=== PATIENT | male | born 1975 | race Caucasian/White ===

== ENCOUNTER 2016-10-01 11:16 | Emergency (ER) | payer BC, OTHER ==
[~2016-10-01 11:16] MED LIST: ALLO300T PO; ATEN100T PO; CHLO25CA9 PO; GLEEVEC400 MG PO; HYDR-2766 PO; HYDR25TA9 PO; POTA20TA4 PO
[2016-10-01 11:32] VITALS: BP 131/91
[2016-10-01 12:14] LABS: BASO % 0 % (0-3); EOS % 7 % (0-3); HEMATOCRIT 46.9 % (39.0-53.0); HEMOGLOBIN 16.2 g/dL (13.0-17.5); LYMPH # 0.6 x10^3/uL (1.0-4.8); LYMPH % 14 % (24-48); MEAN CORPUSCULAR HEMOGLOBIN 34 pg (25-35); MEAN CORPUSCULAR HGB CONC 35 g/dL (31-37); MEAN CORPUSCULAR VOLUME 99 fL (79-100); MONO % 14 % (0-9); NEUT % 64 % (31-73); PLATELET COUNT 197 x10^3/uL (140-400); RED BLOOD COUNT 4.75 x10^6/uL (4.30-5.70); RED CELL DISTRIBUTION WIDTH 13.9 % (11.5-14.5); WHITE BLOOD COUNT 4.2 x10^3/uL (4.0-11.0)
[2016-10-01 12:23] LABS: CALCIUM 9.5 mg/dL (8.5-10.1); CREATININE 0.8 mg/dL (0.7-1.3); GFR 106.5; POTASSIUM 3.8 mmol/L (3.5-5.1)
[2016-10-01 12:29] LABS: ALBUMIN 4.5 g/dL (3.4-5.0); ALBUMIN/GLOBULIN RATIO 1.3 (1.0-1.7); TOTAL BILIRUBIN 0.6 mg/dL (0.2-1.0)
--- NOTE | 2016-10-01 12:46 | PHYS DOC ---
Past Medical History Past Medical History: Hypertension Additional Past Medical Histor: LEJAVIERKEJOHNSON Past Surgical History: Hip Replacement Alcohol Use: Occasionally Drug Use: None Adult General Chief Complaint Chief Complaint: WEAKNESS/GENERALIZED HPI HPI 40-year-old male presenting to the emergency department with generalized weakness and fatigue. He has a history of chronic myelogenous leukemia currently on Gleevec therapy orally. She reports having a tick bite approximately one and half weeks ago. He has been in discussion with his oncologist about his fatigue over the past week who recommended he come in for evaluation. He reports blood work being performed but not knowing the results. Onset 1 week. Location generalized. Duration intermittent. Worse with walking and alleviated with rest. Review of systems was negative for fevers chills. Positive with nausea with one episode of vomiting yesterday. Vomitus is nonbilious and nonbloody. He denies chest pain or shortness of breath. All other review of systems is negative unless otherwise noted in history of present illness. ED course: 40-year-old gentleman presenting with generalized fatigue and weakness. Afebrile here. Otherwise unremarkable vital signs. Physical exam shows very faint rash along the anterior abdominal wall that is macular. No evidence of a target lesion around the tick bite area. Otherwise the patient has been scratching his legs which the showed me. The remainder the exam is unremarkable. Blood work obtained. Given the patient's history of tick bite exposure and fatigue with a rash the patient was prescribed doxycycline to follow-up with his doctor in 2-3 days. The patient was then discharged home in stable condition to follow up with their primary care physician over the next 2- 3 days. They were to return if their symptoms worsened or if they were concerned for any reason. [id number] discharge instructions and return precautions were given. Patient's questions were answered to their satisfaction. Patient is comfortable plan. Review of Systems Review of Systems SEE ABOVE. Allergies Allergies Allergies Coded Allergies Type Severity Reaction Last Updated Verified celecoxib Allergy Severe 06/08/14 No Physical Exam Physical Exam Constitutional: Well developed, well nourished, no acute distress, non-toxic appearance. [] HENT: Normocephalic, atraumatic, bilateral external ears normal, oropharynx moist, no oral exudates, nose normal. [] Eyes: PERRLA, EOMI, conjunctiva normal, no discharge. [] Neck: Normal range of motion, no tenderness, supple, no stridor. [] Cardiovascular:Heart rate regular rhythm, no murmur [] Lungs & Thorax: Bilateral breath sounds clear to auscultation [] Abdomen: Bowel sounds normal, soft, no tenderness, no masses, no pulsatile masses. rash present. see above Skin: Warm, dry,. see above Back: No tenderness, no CVA tenderness. [] Extremities: No tenderness, no cyanosis, no clubbing, ROM intact, no edema. [] Neurologic: Alert and oriented X 3, normal motor function, normal sensory function, no focal deficits noted. [] Psychologic: Affect normal, judgement normal, mood normal. [] Current Patient Data Vital Signs Vital Signs Date Time Temp Pulse Resp B/P (MAP) Pulse Ox O2 Delivery O2 Flow Rate FiO2 10/01/16 11:32 98.0 94 18 131/91 (104) 97 Room Air 98.0 Lab Values Laboratory Tests Test 10/01/16 12:00 White Blood Count 4.2 x10^3/uL (4.0-11.0) Red Blood Count 4.75 x10^6/uL (4.30-5.70) Hemoglobin 16.2 g/dL (13.0-17.5) Hematocrit 46.9 % (39.0-53.0) Mean Corpuscular Volume 99 fL (79-100) Mean Corpuscular Hemoglobin 34 pg (25-35) Mean Corpuscular Hemoglobin Concent 35 g/dL (31-37) Red Cell Distribution Width 13.9 % (11.5-14.5) Platelet Count 197 x10^3/uL (140-400) Neutrophils (%) (Auto) 64 % (31-73) Lymphocytes (%) (Auto) 14 % (24-48) L Monocytes (%) (Auto) 14 % (0-9) H Eosinophils (%) (Auto) 7 % (0-3) H Basophils (%) (Auto) 0 % (0-3) Neutrophils # (Auto) 2.7 x10^3uL (1.8-7.7) Lymphocytes # (Auto) 0.6 x10^3/uL (1.0-4.8) L Monocytes # (Auto) 0.6 x10^3/uL (0.0-1.1) Eosinophils # (Auto) 0.3 x10^3/uL (0.0-0.7) Basophils # (Auto) 0.0 x10^3/uL (0.0-0.2) Sodium Level 136 mmol/L (136-145) Potassium Level 3.8 mmol/L (3.5-5.1) Chloride Level 97 mmol/L (98-107) L Carbon Dioxide Level 32 mmol/L (21-32) Anion Gap 7 (6-14) Blood Urea Nitrogen 10 mg/dL (8-26) Creatinine 0.8 mg/dL (0.7-1.3) Estimated GFR (Cockcroft-Gault) 106.5 BUN/Creatinine Ratio 13 (6-20) Glucose Level 105 mg/dL (70-99) H Calcium Level 9.5 mg/dL (8.5-10.1) Total Bilirubin 0.6 mg/dL (0.2-1.0) Aspartate Amino Transferase (AST) 98 U/L (15-37) H Alanine Aminotransferase (ALT) 135 U/L (16-63) H Alkaline Phosphatase 77 U/L (46-116) Total Protein 8.0 g/dL (6.4-8.2) Albumin 4.5 g/dL (3.4-5.0) Albumin/Globulin Ratio 1.3 (1.0-1.7) Lipase 127 U/L (73-393) Laboratory Tests 10/01/16 12:00 Laboratory Tests 10/01/16 12:00 EKG EKG [] Radiology/Procedures Radiology/Procedures [] Course & Med Decision Making Course & Med Decision Making Pertinent Labs and Imaging studies reviewed. (See chart for details) [] Dragon Disclaimer Dragon Disclaimer This electronic medical record was generated, in whole or in part, using a voice recognition dictation system. Departure Departure Impression: Primary Impression: Tick bite of abdomen Additional Impressions: Rash Fatigue Disposition: 01 HOME, SELF-CARE Condition: STABLE Referrals: JOHANNA STRICKLAND MD (PCP) Problem Qualifiers RAMY GREENBERG MD Oct 01, 2016 12:46
[2016-10-01] MEDS ORDERED: DOXY100C14 PO (13:31)
== END 2016-10-01 14:00 | disposition home or self-care (01) ==
LOC: ER 11:16
DX: S30.861A Insect bite (nonvenomous) of abdominal wall, initial encounter (principal); R21 Rash and other nonspecific skin eruption; R53.83 Other fatigue; I10 Essential (primary) hypertension; Z96.649 Presence of unspecified artificial hip joint; Z85.6 Personal history of leukemia; Z88.6 Allergy status to analgesic agent; Y93.89 Activity, other specified; Y99.8 Other external cause status; Y92.89 Other specified places as the place of occurrence of the external cause
CPT/HCPCS: 36415; 80053; 83690; 85027; 99284

== ENCOUNTER → 2016-10-24 | Outpatient (CLI) | payer BC ==
[2016-10-01 11:32] VITALS: BP 131/91
[~2016-10-24] MED LIST changes: +DOXY100C14 PO
--- NOTE | 2016-10-24 11:26 | RAD ---
Abdominal ultrasound, 10/24/2016: History: Leukemia The gallbladder is within normal limits in size. There is no sonographic evidence of cholelithiasis. The gallbladder [place] are not thickened. No bile duct dilatation is seen. The liver is enlarged measuring 19 cm in craniocaudad extent at the level of the right lobe. It demonstrates increased echogenicity compatible with fatty change. No hepatic mass is seen. The pancreas was obscured by overlying bowel. The spleen is within normal limits in size. The left kidney is unremarkable. The right kidney is congenitally absent. The visualized portions of the abdominal aorta and inferior vena cava are unremarkable. No free fluid is evident in the abdomen. IMPRESSION: 1. Hepatomegaly with hepatic steatosis. 2. Congenitally absent right kidney. 3. No acute abdominal abnormality is detected.
== END | disposition home or self-care (01) ==
LOC: US 07:50
PROVIDERS: ATTEND Internal Medicine Hematology & Oncology
DX: K76.0 Fatty (change of) liver, not elsewhere classified (principal); R16.0 Hepatomegaly, not elsewhere classified; D73.89 Other diseases of spleen
CPT/HCPCS: 76700

== ENCOUNTER → 2020-09-19 | Outpatient (CLI) | payer BC ==
[2020-08-20 15:00] VITALS: BP 136/71
[~2020-09-19] MED LIST changes: +ASPI-886 PO; +ATEN50TA PO; +DOXY-181 PO; -DOXY100C14 PO; +HYDR-2145 PO; -HYDR-2766 PO; +HYDR-2769 PO; -HYDR25TA9 PO; +MULT1TAB92 PO; +REGADENOSON 0.4 MG/5 ML DISP.SYRIN. IV ONE; +THIA100T22 PO; +TRIA1TAB3 PO
--- NOTE | 2020-09-19 17:17 | RAD ---
MR#: [id number] Date of Study: 09/19/2020 Ordering Physician: LORY DOMINIQUE, Referring Physician: GUILLERMO CRANDALL Tech: RT Samra (R) (N) APPROVED REPORT Test Type: Pharmacological Stress Nurse/Tech: Duncan Cox RN Test Indications: CP Cardiac History: HTN, CP, See EMR. Medications: See EMR. Medical History: See EMR. Resting ECG: SR Resting Heart Rate: 86 bpm Resting Blood Pressure: 117/74mmHg Pretest Chest Pain: No chest pain Nurse/Tech Notes Lungs CTA, Heart tones regular. Consent: The procedure was explained to the patient in lay terms. Informed consent was witnessed. Archie eout was entered into [employer]. History and Stress Test performed by [facility]. Details Pharmacologic stress testing was performed using 0.4mg per 5ml of regadenoson given intravenously ove r 7-10 seconds. POST EXERCISE Reason for Termination: Infusion complete Max HR: 124 bpm Max Blood Pressure: 147/87mmHg Blood Pressure response to exercise: Normal blood pressure response during stress. Heart Rate response to exercise: WNL Chest Pain: No. Arrhythmia: No. ST Change: Yes. Slight ST depression in lead III, and Slight ST elevationin lead V2; both resolved by the end of rest. INTERPRETATION Stress EKG Conclusion: Baseline EKG showed sinus rhythm. Non-diagnostic changes at peak stress. No arrhythmias. Imaging Protocol IMAGE PROTOCOL: Rest Tc-99m/stress Tc-99m 1 day Rest: Stress: Viability: Radiopharm.Tc99m DbzihyogeNx26v Sestamibi Rrzm43fRz 33mCi Duration 13min. 13min. Img Date 09/19/2020 09/19/2020 Inj-Img Tkzr74eds. 60min. Rest Admin Site:IV - Left AntecubitalAdministrator:RT Zay (R)(N) Stress Admin Site: IV - Left AntecubitalAdministrator: GODWIN Cano STRESS DATA End Diast. Vol.108.0mlLVEDV index BSA48.0ml End Syst. Vol.27.0mlLVESV index BSA12.0ml Myocardial Xppv978.0gEject. Gamugkmq07.0% Stress Scores Regional WT0.00Summed WT4.00 Regional WM0.00Summed WM0.00 LV Perfusion Scintigraphic images showed moderate perfusion defect involving the mid to distal anterior wall and t he apical wall consistent with ischemia. Wall Motion Normal left ventricular systolic function with ejection fraction calculated at 69%. LV Perf. Quant 17 Seg. SSS9.00 17 Seg. SRS0.00 17 Seg. SDS9.00 Stress Defect Extent (% LAD)38.80Rest Defect Extent (% LAD)0.00Rev. Defect Extent (% LAD)38.10 Stress Defect Extent (% LCX) 11.30Rest Defect Extent (% LCX)0.00Rev. Defect Extent (% LCX)11.30 Stress Defect Extent (% RCA)0.00Rest Defect Extent (% RCA)0.00Rev. Defect Extent (% RCA)0.00 Stress Defect Extent (% ANGEL)22.40Rest Defect Extent (% ANGEL)0.00Rev. Defect Extent (% ANGEL)22.00 Conclusion 1. Regadenoson cardioisotope stress showed moderate amount of ischemia involving the mid to distal an terior wall and the apical wall. 2. Normal left ventricular systolic function with ejection fraction calculated at 69%. 3. Intermediate risk for cardiac events. Consider coronary angiography. Signed by : Perfecto Cohen, Electronically Approved : 09/19/2020 17:16:29
== END ==
LOC: NM 10:17
PROVIDERS: ATTEND Internal Medicine Cardiovascular Disease
DX: I10 Essential (primary) hypertension (principal)
CPT/HCPCS: 78452; 93017; A9500; J2785

== ENCOUNTER 2020-09-26 06:15 | Outpatient (CLI) | payer BC ==
[~2020-09-26] VITALS: Ht 185.4 cm; Wt 106.8 kg
[2020-09-26] VITALS (11 sets, daily range): BP systolic 118–142; BP diastolic 76–91
[~2020-09-26 06:15] MED LIST changes: -ASPI-886 PO; -REGADENOSON 0.4 MG/5 ML DISP.SYRIN. IV ONE
[2020-09-26] MEDS ORDERED: IODIXANOL 320 MG/ML 100 ML VIAL. ONE (07:37)
[2020-09-26] MEDS ORDERED: LIDOCAINE 1% PF 2 ML VIAL. ONE (07:38)
[2020-09-26] MEDS ORDERED: HEPARIN for ARTERIAL LINE 1,500 ML ONE (07:38)
[2020-09-26 07:40] LABS: CALCIUM 8.9 mg/dL (8.5-10.1); CREATININE 0.9 mg/dL (0.7-1.3); GFR 91.3; POTASSIUM 3.4 mmol/L (3.5-5.1)
[2020-09-26 07:48] LABS: PROTHROMBIN TIME PATIENT 12.2 SEC (11.7-14.0); RED BLOOD COUNT 4.87 x10^6/uL (4.30-5.70); RED CELL DISTRIBUTION WIDTH 14.5 % (11.5-14.5); WHITE BLOOD COUNT 5.2 x10^3/uL (4.0-11.0)
[2020-09-26 07:57] LABS: HEMATOCRIT 48.1 % (39.0-53.0); HEMOGLOBIN 17.1 g/dL (13.0-17.5)
[2020-09-26] MEDS ORDERED: ASPI-886 PO (08:01)
[2020-09-26] MEDS ORDERED: fentaNYL PF VIAL 100 MCG/2 ML VIAL ONE (09:53)
[2020-09-26] MEDS ORDERED: MIDAZOLAM HCL/PF 2 MG/2 ML VIAL. ONE (09:54)
[2020-09-26] MEDS ORDERED: diphenhydrAMINE 50 MG/ML VIAL ONE (09:54)
[2020-09-26] MEDS ORDERED: NITROGLYCERIN 200 MCG/2 ML SYRINGE FOR CATH/VASC LAB. ONE (09:54)
[2020-09-26] MEDS ORDERED: HEPARIN for IV BOLUS 10,000 UNIT/10 ML VIAL. ONE (09:54)
[2020-09-26] MEDS ORDERED: VERAPAMIL 5 MG/2 ML VIAL. ONE (09:54)
[2020-09-26] MEDS ORDERED: NITROGLYCERIN 200 MCG/2 ML SYRINGE FOR CATH/VASC LAB. IART ONE (10:30)
[2020-09-26] MEDS ORDERED: fentaNYL PF VIAL 100 MCG/2 ML VIAL IV ONE (10:30)
[2020-09-26] MEDS ORDERED: IODIXANOL 320 MG/ML 100 ML VIAL. IART ONE (10:30)
[2020-09-26] MEDS ORDERED: MIDAZOLAM HCL/PF 2 MG/2 ML VIAL. IV ONE (10:30)
[2020-09-26] MEDS ORDERED: CONTRAST GIVEN. MC PRN (10:30)
[2020-09-26] MEDS ORDERED: LIDOCAINE 1% PF 2 ML VIAL. INJ ONE (10:30)
[2020-09-26] MEDS ORDERED: VERAPAMIL 5 MG/2 ML VIAL. IART ONE (10:30)
[2020-09-26] MEDS ORDERED: HEPARIN for IV BOLUS 10,000 UNIT/10 ML VIAL. IART ONE (10:30)
--- NOTE | 2020-09-26 11:24 | CARD ---
MR#: [id number] Date of Study: 09/26/2020 Ordering Physician: LORY SAHU, Referring Physician: LORY SAHU, Tech: RT Jesusita(R) APPROVED REPORT Technologist: Mary Feliz RT(R) Nurse: Jaimee Gonzales RN Procedure(s) performed: MODERATE SEDATION TIME: 22 MINUTES FLUORO TIME: 4.6 MIN DOSE: 63.9 GYCM2 CONTRAST: 68CC VISI LHC, coronary angiography [facility] Clinical Frailty Scale [facility] Clinical Frailty Scale: Managing Well Heart Failure Heart Failure: Yes If Yes, Newly Diagnosed: Yes If Yes, HF Type: Diastolic If Yes, NYHA Class: Class II CASE TECHNIQUE IV conscious sedation was used throughout procedure with appropriate monitoring and was performed in the presence of a registered nurse who was an independent trained observer other than the physician p erforming the procedure. During this case, Fluoroscopy and low osmolar contrast were used for imaging . Specimen(s) Removed: N/A Estimated Blood loss: 15 cc's. PROCEDURE NARRATIVE Clinical information: 44-year-old male who presented to the hospital originally with COPD exacerbation had a subsequent str ess test in the setting of dyspnea and this revealed mild to moderate ischemia. 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 The patient has a preserved ejection fraction of 55%. Procedure details: After proper informed consent the right wrist was prepped and draped in usual sterile fashion. Under 1% lidocaine local anesthesia a 6 [place] sheath was placed in the right radial artery via the Seldin carter technique. Diagnostic angiography was performed with a 6 [place] TIG, 6 [place] JR 4 and 6 [place] JL 3.5 catheters. At case completion the right radial sheath was removed and hemostasis was achieved with a Terumo radial band. No acute complications noted. Findings: Aorta 110/70 LVEDP 9 mmHg No pullback gradient across aortic valve Coronary angiography: Left main is a large-caliber vessel with a distal 20% stenosis LAD is a moderate to large caliber vessel with severe negative remodeling in the mid to distal segmen t with mild diffuse disease of up to 30% D1 is a small caliber vessel with a focal eccentric 95% calcific stenosis in the proximal segment Left circumflex is a moderate caliber nondominant vessel with a proximal 70% stenosis extending into the first obtuse marginal. OM1 is a moderate caliber vessel with mild luminal irregularities RCA is a large caliber dominant vessel with a mid eccentric 50% stenosis. Conclusion 1. Normal left-sided filling pressures 2. Three-vessel coronary artery disease Recommendations 1. Patient had moderate ischemia in the mid to distal anterior wall without a corresponding angiogra phic lesion in the LAD. Suspect the anterior wall abnormalities are related to the diagonal lesion w hich is small in caliber. Although the patient has triple-vessel disease he does not have any angin a and has stable LV function. The patient has severe alcoholism. In light of his normal LV function and other comorbidities we will plan for medical therapy with aspirin, statin as his liver function allows and continued blood pressure monitoring. Discussed need for alcohol cessation. Signed by : Lory Sahu, Electronically Approved : 09/26/2020 11:23:35
--- NOTE | 2020-09-26 13:30 | NUR ---
pt A&O x4. rt radial site- tr band removed- no bleeding. cleaned area and applied clean dressing. reapplied armboard to rt hand/wrist area. VSS. tolerating po well. ambulated to bathroom w/o problem . d/c instructions given and questions answered. out to vehicle per w/c- to drive himhome.
== END 2020-09-26 13:30 | disposition home or self-care (01) ==
LOC: CCL 06:15
PROVIDERS: ATTEND Internal Medicine Cardiovascular Disease
DX: R06.09 Other forms of dyspnea (principal); R94.39 Abnormal result of other cardiovascular function study; I25.10 Atherosclerotic heart disease of native coronary artery without angina pectoris; J44.1 Chronic obstructive pulmonary disease with (acute) exacerbation; I10 Essential (primary) hypertension; E66.9 Obesity, unspecified; M19.90 Unspecified osteoarthritis, unspecified site; M10.9 Gout, unspecified; Z87.891 Personal history of nicotine dependence; Z79.82 Long term (current) use of aspirin; Z79.899 Other long term (current) drug therapy; Z98.890 Other specified postprocedural states; Z72.89 Other problems related to lifestyle; Z88.8 Allergy status to other drugs, medicaments and biological substances; Z20.822 Contact with and (suspected) exposure to COVID-19
CPT/HCPCS: 36415; 80048; 85027; 85610; 87426; 93458; 99152; C1769; C1894; J1644; J2250; J3010; J3490; Q9967; 99153

== ENCOUNTER 2020-09-30 19:30 | Inpatient (IN) | payer BC ==
[~2020-09-30] VITALS: Ht 185.4 cm; Wt 104.3 kg
[~2020-09-30 19:30] MED LIST changes: +ASPI-886 PO
--- NOTE | 2020-09-30 19:53 | ED.ADGEN ---
Past Medical History Past Medical History: CAD, Hypertension Additional Past Medical Histor: LEAUKEMIA, "HARDENING OF THE ARTERIES", GOUT Past Surgical History: Hip Replacement Smoking Status: Former Smoker Alcohol Use: Heavy Drug Use: None General Adult EDM: Chief Complaint: TREMORS HPI: HPI: Patient is a 44 year old male brought in by EMS for shaking. Patient states he been outside in the heat (current heat index 100 degrees) and had little to eat or drink today. He states that when the shaking started was falling coming back inside to the air conditioner. Patient states he feels fine now. Patient states did not want to come to the hospital but his daughter insisted and called EMS. States he otherwise been well no other complaints. Had a heart cath 5 days ago without any stents placed. Cath was done because he had an abnormal stress test. Patient has a history of CML is taking Gleevec. On arrival arrival she states that he has been having shaking episodes the past few days and has felt warm to the touch, did not check temperature. Says the same symptoms happened yesterday while he was sitting inside in the air conditioning. Review of Systems: Review of Systems: All other systems within normal limits except for as noted in the HPI Current Medications: Current Medications Medications (Trade) Dose Ordered Sig/Susy Start Time Stop Time Status Last Admin Dose Admin Acetaminophen (Tylenol) 1,000 mg 1X ONCE 09/30/20 21:30 09/30/20 21:31 DC 09/30/20 21:31 1,000 MG Cefepime HCl (Maxipime) 1 gm 1X ONCE 09/30/20 21:30 09/30/20 21:31 DC 09/30/20 21:31 1 GM Sodium Chloride 1,000 ml @ 1,000 mls/hr 1X ONCE 09/30/20 20:00 09/30/20 20:59 DC 09/30/20 19:56 1,000 MLS/HR Vancomycin HCl (Vanco Per Pharmacy) 1 each PRN DAILY PRN 09/30/20 21:15 Vancomycin HCl 2 gm/Sodium Chloride 500 ml @ 250 mls/hr 1X ONCE 09/30/20 21:30 09/30/20 23:29 09/30/20 21:31 250 MLS/HR Allergies: Allergies: Allergies Coded Allergies Type Severity Reaction Last Updated Verified celecoxib Adverse Reaction Severe 08/20/20 No Physical Exam: PE: Constitutional: Well developed, well nourished, no acute distress, non-toxic appearance. [] HENT: Normocephalic, atraumatic, bilateral external ears normal, nose normal. Dry mucous membrane [] Eyes: PERRLA, conjunctiva normal, no discharge. [] Neck: No rigidity, supple, no stridor. [] Cardiovascular: Tachycardic, regular rhythm, brisk cap refill [] Lungs & Thorax: Non labored symmetric respirations, no tachypnea or respiratory distress [] Abdomen: Soft, nondistended. Skin: Warm, dry, no erythema, no rash. [] Back: Unremarkable Extremities: No deformities, range of motion grossly intact, no lower extremity edema [] Neurologic: Alert and oriented X 3, no focal deficits noted. No tremors [] Psychologic: Affect normal, judgement normal, mood normal. [] Current Patient Data: Labs: Laboratory Tests Test 09/30/20 19:53 09/30/20 20:48 White Blood Count 1.7 x10^3/uL (4.0-11.0) *L Red Blood Count 4.46 x10^6/uL (4.30-5.70) Hemoglobin 15.5 g/dL (13.0-17.5) Hematocrit 42.6 % (39.0-53.0) Mean Corpuscular Volume 96 fL (79-100) Mean Corpuscular Hemoglobin 35 pg (25-35) Mean Corpuscular Hemoglobin Concent 36 g/dL (31-37) Red Cell Distribution Width 14.1 % (11.5-14.5) Platelet Count 94 x10^3/uL (140-400) L Neutrophils (%) (Auto) 90 % (31-73) H Lymphocytes (%) (Auto) 5 % (24-48) L Monocytes (%) (Auto) 3 % (0-9) Eosinophils (%) (Auto) 1 % (0-3) Basophils (%) (Auto) 1 % (0-3) Neutrophils # (Auto) 1.5 x10^3/uL (1.8-7.7) L Lymphocytes # (Auto) 0.1 x10^3/uL (1.0-4.8) L Monocytes # (Auto) 0.0 x10^3/uL (0.0-1.1) Eosinophils # (Auto) 0.0 x10^3/uL (0.0-0.7) Basophils # (Auto) 0.0 x10^3/uL (0.0-0.2) Segmented Neutrophils % 37 % (35-66) Band Neutrophils % 46 % (0-9) H Lymphocytes % 12 % (24-48) L Monocytes % 3 % (0-10) Eosinophils % 1 % (0-5) Metamyelocytes % 1 % (0-0) H Platelet Estimate Decreased (ADEQUATE) Sodium Level 136 mmol/L (136-145) Potassium Level 3.2 mmol/L (3.5-5.1) L Chloride Level 97 mmol/L (98-107) L Carbon Dioxide Level 23 mmol/L (21-32) Anion Gap 16 (6-14) H Blood Urea Nitrogen 19 mg/dL (8-26) Creatinine 1.2 mg/dL (0.7-1.3) Estimated GFR (Cockcroft-Gault) 65.5 BUN/Creatinine Ratio 16 (6-20) Glucose Level 122 mg/dL (70-99) H Calcium Level 8.2 mg/dL (8.5-10.1) L Total Bilirubin 1.4 mg/dL (0.2-1.0) H Aspartate Amino Transferase (AST) 38 U/L (15-37) H Alanine Aminotransferase (ALT) 53 U/L (16-63) Alkaline Phosphatase 68 U/L (46-116) Troponin I Quantitative < 0.017 ng/mL (0.000-0.055) AN-Ddx-W-Type Natriuretic Peptide 116 pg/mL (0-124) Total Protein 6.5 g/dL (6.4-8.2) Albumin 3.7 g/dL (3.4-5.0) Albumin/Globulin Ratio 1.3 (1.0-1.7) Urine Collection Type Unknown Urine Color Yellow Urine Clarity Clear Urine pH 7.0 (<5.0-8.0) Urine Specific [place] 1.010 (1.000-1.030) Urine Protein 100 mg/dL (NEG-TRACE) Urine Glucose (UA) Negative mg/dL (NEG) Urine Ketones (Stick) Trace mg/dL (NEG) Urine Blood Negative (NEG) Urine Nitrite Negative (NEG) Urine Bilirubin Negative (NEG) Urine Urobilinogen Dipstick 1.0 mg/dL (0.2 mg/dL) Urine Leukocyte Esterase Negative (NEG) Urine RBC 1-2 /HPF (0-2) Urine WBC Occ /HPF (0-4) Urine Squamous Epithelial Cells Few /LPF Urine Bacteria 0 /HPF (0-FEW) Laboratory Tests 09/30/20 19:53 Laboratory Tests 09/30/20 19:53 Vital Signs: Vital Signs Date Time Temp Pulse Resp B/P (MAP) Pulse Ox O2 Delivery O2 Flow Rate FiO2 09/30/20 20:47 102.5 123 102.5 09/30/20 19:34 22 128/92 (104) 96 Room Air EKG: EKG: Sinus tachycardia, heart rate 135 bpm, left axis deviation, no ST elevation depression, no ectopy, normal intervals. Heart Score: C/O Chest Pain: No HEART Score for Chest Pain: HEART Score for Chest Pain Response (Comments) Value History Slighlty/Non-Suspicious 0 ECG Normal 0 Age >45 - < 65 1 Risk Factors 1 or 2 Risk Factors 1 Troponin < Normal Limit 0 Total 2 Risk Factors: Risk Factors: DM, Current or recent (<one month) smoker, HTN, HLP, family history of CAD, obesity. Risk Scores: Score 0 - 3: 2.5% MACE over next 6 weeks - Discharge Home Score 4 - 6: 20.3% MACE over next 6 weeks - Admit for Clinical Observation Score 7 - 10: 72.7% MACE over next 6 weeks - Early Invasive Strategies Radiology/Procedures: Radiology/Procedures: [facility] [address] [place], [place] [id number] IMAGING REPORT Signed PATIENT: CHETAN ELI ACCOUNT: [id number] : 02/08/1989 LOCATION: ER AGE: 31 SEX: F EXAM STATUS: REG ER ORD. PHYSICIAN: CLAUDIA WOOD MD REASON: fall PROCEDURE: HUMERUS LEFT EXAM: 1. AP and lateral views left forearm 2. AP and lateral views left humerus DATE: 09/30/2020 8:41 PM INDICATION: Reason: fall / Spl. Instructions: / History: . COMPARISON: No Prior FINDINGS: No evidence of acute fracture or dislocation. Joint spaces are preserved without significant degenerative/proliferative change. Mild dorsal forearm soft tissue swelling. IMPRESSION: No evidence of acute fracture or dislocation. Electronically signed by: Femi Brooke MD (09/30/2020 9:19 PM) [facility] DICTATED and SIGNED BY: FEMI BROOKE MD DATE: 09/30/20 [id number] [] Course & Med Decision Making: Course & Med Decision Making Pertinent Labs and Imaging studies reviewed. (See chart for details) Patient has a white blood cell count of 1.7, down from 5 on 614. ALC 85. Blood cultures drawn and will treat for fever of unknown origin. Admitted to hospitalist, Dr. Benavides [] Rosalinda Disclaimer: Rosalinda Disclaimer: This electronic medical record was generated, in whole or in part, using a voice recognition dictation system. Departure Departure Impression: Primary Impression: Fever, unknown origin Additional Impression: Leukopenia Disposition: ADMITTED INPATIENT Admitting Physician: HIMS Condition: STABLE Referrals: JOHANNA STRICKLAND MD (PCP) Problem Qualifiers CLAUDIA WOOD MD Sep 30, 2020 19:53
[2020-09-30] MEDS ORDERED: IV NORMAL SALINE 1000ML BAG 1,000 ML IV ONE ×2 (20:00)
[2020-09-30 20:13] LABS: BASO % 1 % (0-3); EOS % 1 % (0-3); HEMATOCRIT 42.6 % (39.0-53.0); HEMOGLOBIN 15.5 g/dL (13.0-17.5); LYMPH # 0.1 x10^3/uL (1.0-4.8); LYMPH % 5 % (24-48); MEAN CORPUSCULAR HEMOGLOBIN 35 pg (25-35); MEAN CORPUSCULAR HGB CONC 36 g/dL (31-37); MEAN CORPUSCULAR VOLUME 96 fL (79-100); MONO % 3 % (0-9); NEUT # 1.5 x10^3/uL (1.8-7.7); NEUT % 90 % (31-73); PLATELET COUNT 94 x10^3/uL (140-400); RED BLOOD COUNT 4.46 x10^6/uL (4.30-5.70); RED CELL DISTRIBUTION WIDTH 14.1 % (11.5-14.5)
[2020-09-30 20:14] LABS: WHITE BLOOD COUNT 1.7 x10^3/uL (4.0-11.0)
[2020-09-30 20:16] LABS: CALCIUM 8.2 mg/dL (8.5-10.1); CREATININE 1.2 mg/dL (0.7-1.3); GFR 65.5; POTASSIUM 3.2 mmol/L (3.5-5.1)
[2020-09-30 20:21] LABS: ALBUMIN 3.7 g/dL (3.4-5.0); ALBUMIN/GLOBULIN RATIO 1.3 (1.0-1.7); TOTAL BILIRUBIN 1.4 mg/dL (0.2-1.0); TOTAL PROTEIN 6.5 g/dL (6.4-8.2)
--- NOTE | 2020-09-30 20:49 | EKG ---
[facility] [address] [place] [address] Test Date: 2020-09-30 Test Time: 19:54:09 Pat Name: KACEY HECTOR Department: Room: Gender: M Doctor Assistant: : 1975 Requested By: CLAUDIA WOOD Order Number: [id number] Reading MD: Measurements Intervals [place] Rate: 135 P: -85 OH: 94 QRS: -47 QRSD: 80 T: 35 QT: 290 QTc: 439 Interpretive Statements SINUS TACHYCARDIA LOW LIMB LEAD VOLTAGE NO SPECIFIC ECG ABNORMALITIES RI6.02 No previous ECG available for comparison
[2020-09-30 21:06] LABS: BILIRUBIN,URINE NEGATIVE (NEG); CLARITY,URINE CLEAR; COLOR,URINE YELLOW; NITRITE,URINE NEGATIVE (NEG); PROTEIN,URINE 100 mg/dL (NEG-TRACE)
[2020-09-30 21:14] LABS: % BANDS 46 % (0-9); % EOS 1 % (0-5); % LYMPHS 12 % (24-48); % METAS 1 % (0-0); % MONOS 3 % (0-10); % SEGS 37 % (35-66)
[2020-09-30] MEDS ORDERED: VANCOMYCIN PER PHARMACY MC PRN (21:15)
[2020-09-30 21:16] LABS: PLT ESTIMATE DECREASED (ADEQUATE)
[2020-09-30 21:17] LABS: BACTERIA,URINE 0 /HPF (0-FEW); WBC,URINE OCC /HPF (0-4)
[2020-09-30] MEDS ORDERED: CEFEPIME HCL IV Push 1 GM VIAL. IVP ONE (21:30)
[2020-09-30] MEDS ORDERED: VANCOMYCIN 2 GM in IV NORMAL SALINE 500ML BAG 500 ML IV ONE (21:30)
[2020-09-30] MEDS ORDERED: ACETAMINOPHEN 500 MG TABLET PO ONE (21:30)
--- NOTE | 2020-09-30 21:33 | RAD ---
Exam: Chest one view INDICATION: Fever TECHNIQUE: Frontal view of the chest Comparisons: 08/19/2020 FINDINGS: The cardiomediastinal silhouette and pulmonary vessels are within normal limits. The lung and pleural spaces are clear. IMPRESSION: No acute cardiopulmonary process. Electronically signed by: Jolie Johnson MD (09/30/2020 9:31 PM) ANDREA
[2020-09-30] MEDS ORDERED: ONDANSETRON PF 4 MG/2 ML VIAL. IV PRN (21:45)
[2020-09-30] MEDS: fentaNYL PF VIAL 100 MCG/2 ML VIAL IV PRN (23:22)
[2020-09-30] MEDS: IV NORMAL SALINE 1000ML BAG 1,000 ML IV SCH (23:22)
[2020-10-01] VITALS (7 sets, daily range): BP systolic 103–138; BP diastolic 61–87
[2020-10-01 02:06] LABS: BASO % 1 % (0-3); EOS % 0 % (0-3); HEMATOCRIT 41.3 % (39.0-53.0); HEMOGLOBIN 14.6 g/dL (13.0-17.5); LYMPH # 0.1 x10^3/uL (1.0-4.8); LYMPH % 2 % (24-48); MEAN CORPUSCULAR HEMOGLOBIN 34 pg (25-35); MEAN CORPUSCULAR HGB CONC 35 g/dL (31-37); MEAN CORPUSCULAR VOLUME 96 fL (79-100); MONO # 0.6 x10^3/uL (0.0-1.1); MONO % 8 % (0-9); NEUT % 89 % (31-73); PLATELET COUNT 90 x10^3/uL (140-400); RED CELL DISTRIBUTION WIDTH 13.8 % (11.5-14.5); WHITE BLOOD COUNT 6.8 x10^3/uL (4.0-11.0)
[2020-10-01 02:15] LABS: ALBUMIN 3.2 g/dL (3.4-5.0); ALBUMIN/GLOBULIN RATIO 1.2 (1.0-1.7); CALCIUM 7.8 mg/dL (8.5-10.1); CREATININE 0.9 mg/dL (0.7-1.3); GFR 91.3; TOTAL BILIRUBIN 1.1 mg/dL (0.2-1.0); TOTAL PROTEIN 5.8 g/dL (6.4-8.2)
[2020-10-01 02:31] LABS: POTASSIUM 2.7 mmol/L (3.5-5.1)
[2020-10-01] MEDS: fentaNYL PF VIAL 100 MCG/2 ML VIAL IV PRN ×4 (02:57→19:22)
[2020-10-01] MEDS: POTASSIUM CHLORIDE 10MEQ 100 ML IV SCH ×4 (02:58→10:29)
[2020-10-01] MEDS ORDERED: POTASSIUM CHLORIDE 20 MEQ TABLET.ER. PO ONE ×2 (03:00→08:00)
--- NOTE | 2020-10-01 03:08 | NUR ---
Pharmacy Vancomycin Dosing Note S:Consulted to monitor and dose vancomycin started 09/30/20. O:KACEY HECTOR is a 44 year old M with Neutropenic Fever . Height: 6 feet, 1 inches Weight: 106.8 kg [place] Body Weight: 79.90 Adjusted Body Weight: 90.66 Dosing Weight: Actual Other Antibiotics: LABS: Last BUN: 19 Last Creatinine: 1.2 Creatinine Clearance: 130 mL/min Last WBC: 1.7 Last Procalcitonin: Tmax (past 24 hours): Microbiology: I/O: Drug Levels: Last level: on at Last dose given 09/30/20 at 2130 Vancomycin Dosing: Loading Dose: 2000 mg x1 Dosing Weight: Actual Target Trough: 10-20 A: Based on: WT AND CRCL P: 1. Begin Vancomycin 1500 mg IV q8h 2. Follow up Trough level on 10/01/20 at 2130 3. Pharmacy will continue to monitor, follow and adjust therapy as needed. OLENA MCBRIDE RPH, 10/01/20307 Signed: 10/01/20 at 0309 by OLENA MCBRIDE RPH PHA
[2020-10-01] MEDS ORDERED: VANCOMYCIN 1.5 GM in IV NORMAL SALINE 500ML BAG 500 ML IV SCH (06:00)
[2020-10-01] MEDS ORDERED: CHLO25CA9 PO (07:20)
[2020-10-01] MEDS: IV NORMAL SALINE 1000ML BAG 1,000 ML IV SCH ×2 (08:08→18:00)
[2020-10-01] MEDS: DOXYCYCLINE HYCLATE 100 MG TABLET PO SCH ×2 (10:28→21:18)
--- NOTE | 2020-10-01 10:43 | PDOC2 ---
CONSULT Date of Consult Date of Consult DATE: 10/01/20 TIME: 10:43 Reason for Consult Reason for Consult: Trop elevation Referring Physician Referring Physician: Dr. Elena Identification/Chief Complaint Chief Complaint Fever, tremors Source Source: Chart review, Patient History of Present Illness Reason for Visit: 44 y/o male with history of CAD and alcohol abuse apparently was working outside in hot weather when he started having fever with chills and tremors and presented to ED after his daughter insisted on it. He was diagnosed with acute sigmoid diverticulitis and admitted for further management. Covid test rapid was negative and PCR is pending. Cardiology has been consulted for slight trop elevation. He denied an chest pain, orthopnea/PND, palpitations or syncope. He recent underwent cardiac cath 09/26/20 and was found to have three vessel CAD that was managed medically. . Past Medical History Past Medical History CML Cardiovascular: CAD, HTN Past Surgical History Past Surgical History: Total hip replacement Family History Family History not contributory Social History Social History Patient is a former smoker, admitted to heavy alcohol use but denied any drug abuse Current Problem List Problem List Problems Medical Problems: (1) Fever, unknown origin Status: Acute (2) Leukopenia Status: Acute Current Medications Current Medications Current Medications Sodium Chloride 1,000 ml @ 1,000 mls/hr 1X ONCE IV Last administered on 09/30/20at 19:56; Start 09/30/20 at 20:00; Stop 09/30/20 at 20:59; Status DC Sodium Chloride 1,000 ml @ 1,000 mls/hr 1X ONCE IV Last administered on 09/30/20at 19:56; Start 09/30/20 at 20:00; Stop 09/30/20 at 20:59; Status DC Acetaminophen (Tylenol) 1,000 mg 1X ONCE PO Last administered on 09/30/20at 21:31; Start 09/30/20 at 21:30; Stop 09/30/20 at 21:31; Status DC Cefepime HCl (Maxipime) 1 gm 1X ONCE IVP Last administered on 09/30/20at 21:31; Start 09/30/20 at 21:30; Stop 09/30/20 at 21:31; Status DC Vancomycin HCl 2 gm/Sodium Chloride 500 ml @ 250 mls/hr 1X ONCE IV Last administered on 09/30/20at 21:31; Start 09/30/20 at 21:30; Stop 09/30/20 at 23:29; Status DC Vancomycin HCl (Vanco Per Pharmacy) 1 each PRN DAILY PRN MC SEE COMMENTS Last administered on 10/01/20at 03:08; Start 09/30/20 at 21:15; Stop 10/01/20 at 09:04; Status DC Ondansetron HCl (Zofran) 4 mg PRN Q8HRS PRN IV NAUSEA/VOMITING 1ST CHOICE; Start 09/30/20 at 21:45; Stop 10/01/20 at 21:44 Fentanyl Citrate (Fentanyl 2ml Vial) 50 mcg PRN Q1HR PRN IV SEVERE PAIN 7-10 Last administered on 10/01/20at 08:17; Start 09/30/20 at 21:45; Stop 10/01/20 at 21:44 Sodium Chloride 1,000 ml @ 100 mls/hr Q10H IV Last administered on 10/01/20at 08:08; Start 09/30/20 at 22:00; Stop 10/01/20 at 21:59 Potassium Chloride (Klor-Con) 40 meq 1X ONCE PO Last administered on 10/01/20at 02:57; Start 10/01/20 at 03:00; Stop 10/01/20 at 03:02; Status DC Potassium Chloride (Klor-Con) 40 meq 1X ONCE PO Last administered on 10/01/20at 08:09; Start 10/01/20 at 08:00; Stop 10/01/20 at 08:01; Status DC Potassium Chloride/Water 100 ml @ 100 mls/hr Q1H IV Last administered on 10/01/20at 10:29; Start 10/01/20 at 03:00; Stop 10/01/20 at 06:59; Status DC Vancomycin HCl 1.5 gm/Sodium Chloride 500 ml @ 250 mls/hr Q8HRS IV Last administered on 10/01/20at 06:11; Start 10/01/20 at 06:00; Stop 10/01/20 at 09:00; Status DC Vancomycin HCl (Vancomycin Trough Level) 1 each 1X ONCE MC ; Start 10/01/20 at 21:30; Stop 10/01/20 at 21:31; Status Cancel Cefepime HCl (Maxipime) 2 gm Q8HRS IVP ; Start 10/01/20 at 14:00 Doxycycline Hyclate (Vibra-Tab) 100 mg BID PO Last administered on 10/01/20at 10:28; Start 10/01/20 at 09:00 Daptomycin 530 mg/ Sodium Chloride 50 ml @ 100 mls/hr Q24H IV ; Start 10/01/20 at 10:00 Active Scripts Active Thera-M Tablet (Multivits,Ca,Minerals/Iron/Fa) 1 Each Tablet 1 Tab PO DAILY 30 Days Vitamin B-1 (Thiamine Mononitrate) 100 Mg Tablet 100 Mg PO DAILY 30 Days Reported Chlordiazepoxide Hcl 25 Mg Capsule 50 Mg PO DAILY Aspirin Ec (Aspirin) 81 Mg Tablet.dr 1 Tab PO DAILY Triamterene-Hctz 37.5-25 Mg Tb (Triamterene/Hydrochlorothiazid) 1 Each Tablet 1 Tab PO DAILY Atenolol 50 Mg Tablet 50 Mg PO DAILY Gleevec (Imatinib Mesylate) 400 Mg Tablet 400 Mg PO HS Allopurinol 300 Mg Tablet 1 Tab PO DAILY Hydrocodone-Apap 10-325 (Hydrocodone Bit/Acetaminophen) 1 Each Tablet 1-2 Tab PO PRN Q6HRS PRN Chlordiazepoxide Hcl 25 Mg Capsule 50 Mg PO HS Allergies Allergies: Coded Allergies: celecoxib (Unverified Adverse Reaction, Severe, 08/20/20) GI bleed ROS General: YES: Chills PSYCHOLOGICAL ROS: No: Hallucinations Eyes: No Loss of vision HEENT: No: Epistaxis Respiratory: No: Hemoptysis, Shortness of breath Cardiovascular: No Chest Pain Gastrointestinal: No Vomiting Genitourinary: No Incontinence Neurological: No Seizures Skin: No Rash Physical Exam General: Alert, mild distress, Other (tremors) HEENT: Atraumatic Lungs: Clear to auscultation Heart: Regular rate Abdomen: Soft Extremities: No edema Neuro: Normal speech Psych/Mental Status: Mood NL Vitals VITALS Vital Signs Date Time Temp Pulse Resp B/P (MAP) Pulse Ox O2 Delivery O2 Flow Rate FiO2 10/01/20 08:17 Room Air 10/01/20 07:00 99.2 109 22 122/73 (89) 98 99.2 Labs Labs Laboratory Tests Test 09/30/20 19:53 09/30/20 20:48 09/30/20 23:27 10/01/20 01:40 White Blood Count 1.7 x10^3/uL (4.0-11.0) 6.8 x10^3/uL (4.0-11.0) Red Blood Count 4.46 x10^6/uL (4.30-5.70) 4.30 x10^6/uL (4.30-5.70) Hemoglobin 15.5 g/dL (13.0-17.5) 14.6 g/dL (13.0-17.5) Hematocrit 42.6 % (39.0-53.0) 41.3 % (39.0-53.0) Mean Corpuscular Volume 96 fL (79-100) 96 fL (79-100) Mean Corpuscular Hemoglobin 35 pg (25-35) 34 pg (25-35) Mean Corpuscular Hemoglobin Concent 36 g/dL (31-37) 35 g/dL (31-37) Red Cell Distribution Width 14.1 % (11.5-14.5) 13.8 % (11.5-14.5) Platelet Count 94 x10^3/uL (140-400) 90 x10^3/uL (140-400) Neutrophils (%) (Auto) 90 % (31-73) 89 % (31-73) Lymphocytes (%) (Auto) 5 % (24-48) 2 % (24-48) Monocytes (%) (Auto) 3 % (0-9) 8 % (0-9) Eosinophils (%) (Auto) 1 % (0-3) 0 % (0-3) Basophils (%) (Auto) 1 % (0-3) 1 % (0-3) Neutrophils # (Auto) 1.5 x10^3/uL (1.8-7.7) 6.0 x10^3/uL (1.8-7.7) Lymphocytes # (Auto) 0.1 x10^3/uL (1.0-4.8) 0.1 x10^3/uL (1.0-4.8) Monocytes # (Auto) 0.0 x10^3/uL (0.0-1.1) 0.6 x10^3/uL (0.0-1.1) Eosinophils # (Auto) 0.0 x10^3/uL (0.0-0.7) 0.0 x10^3/uL (0.0-0.7) Basophils # (Auto) 0.0 x10^3/uL (0.0-0.2) 0.0 x10^3/uL (0.0-0.2) Segmented Neutrophils % 37 % (35-66) Band Neutrophils % 46 % (0-9) Lymphocytes % 12 % (24-48) Monocytes % 3 % (0-10) Eosinophils % 1 % (0-5) Metamyelocytes % 1 % (0-0) Platelet Estimate Decreased (ADEQUATE) Sodium Level 136 mmol/L (136-145) 138 mmol/L (136-145) Potassium Level 3.2 mmol/L (3.5-5.1) 2.7 mmol/L (3.5-5.1) Chloride Level 97 mmol/L (98-107) 100 mmol/L (98-107) Carbon Dioxide Level 23 mmol/L (21-32) 22 mmol/L (21-32) Anion Gap 16 (6-14) 16 (6-14) Blood Urea Nitrogen 19 mg/dL (8-26) 13 mg/dL (8-26) Creatinine 1.2 mg/dL (0.7-1.3) 0.9 mg/dL (0.7-1.3) Estimated GFR (Cockcroft-Gault) 65.5 91.3 BUN/Creatinine Ratio 16 (6-20) 14 (6-20) Glucose Level 122 mg/dL (70-99) 148 mg/dL (70-99) Calcium Level 8.2 mg/dL (8.5-10.1) 7.8 mg/dL (8.5-10.1) Total Bilirubin 1.4 mg/dL (0.2-1.0) 1.1 mg/dL (0.2-1.0) Aspartate Amino Transf (AST/SGOT) 38 U/L (15-37) 38 U/L (15-37) Alanine Aminotransferase (ALT/SGPT) 53 U/L (16-63) 47 U/L (16-63) Alkaline Phosphatase 68 U/L (46-116) 65 U/L (46-116) Troponin I Quantitative < 0.017 ng/mL (0.000-0.055) 0.105 ng/mL (0.000-0.055) WG-Rwb-U-Type Natriuretic Peptide 116 pg/mL (0-124) Total Protein 6.5 g/dL (6.4-8.2) 5.8 g/dL (6.4-8.2) Albumin 3.7 g/dL (3.4-5.0) 3.2 g/dL (3.4-5.0) Albumin/Globulin Ratio 1.3 (1.0-1.7) 1.2 (1.0-1.7) Urine Collection Type Unknown Urine Color Yellow Urine Clarity Clear Urine pH 7.0 (<5.0-8.0) Urine Specific [place] 1.010 (1.000-1.030) Urine Protein 100 mg/dL (NEG-TRACE) Urine Glucose (UA) Negative mg/dL (NEG) Urine Ketones (Stick) Trace mg/dL (NEG) Urine Blood Negative (NEG) Urine Nitrite Negative (NEG) Urine Bilirubin Negative (NEG) Urine Urobilinogen Dipstick 1.0 mg/dL (0.2 mg/dL) Urine Leukocyte Esterase Negative (NEG) Urine RBC 1-2 /HPF (0-2) Urine WBC Occ /HPF (0-4) Urine Squamous Epithelial Cells Few /LPF Urine Bacteria 0 /HPF (0-FEW) SARS-CoV-2 Antigen (Rapid) Negative (NEGATIVE) Laboratory Tests Test 09/30/20 19:53 09/30/20 20:48 09/30/20 23:27 10/01/20 01:40 White Blood Count 1.7 x10^3/uL (4.0-11.0) 6.8 x10^3/uL (4.0-11.0) Red Blood Count 4.46 x10^6/uL (4.30-5.70) 4.30 x10^6/uL (4.30-5.70) Hemoglobin 15.5 g/dL (13.0-17.5) 14.6 g/dL (13.0-17.5) Hematocrit 42.6 % (39.0-53.0) 41.3 % (39.0-53.0) Mean Corpuscular Volume 96 fL (79-100) 96 fL (79-100) Mean Corpuscular Hemoglobin 35 pg (25-35) 34 pg (25-35) Mean Corpuscular Hemoglobin Concent 36 g/dL (31-37) 35 g/dL (31-37) Red Cell Distribution Width 14.1 % (11.5-14.5) 13.8 % (11.5-14.5) Platelet Count 94 x10^3/uL (140-400) 90 x10^3/uL (140-400) Neutrophils (%) (Auto) 90 % (31-73) 89 % (31-73) Lymphocytes (%) (Auto) 5 % (24-48) 2 % (24-48) Monocytes (%) (Auto) 3 % (0-9) 8 % (0-9) Eosinophils (%) (Auto) 1 % (0-3) 0 % (0-3) Basophils (%) (Auto) 1 % (0-3) 1 % (0-3) Neutrophils # (Auto) 1.5 x10^3/uL (1.8-7.7) 6.0 x10^3/uL (1.8-7.7) Lymphocytes # (Auto) 0.1 x10^3/uL (1.0-4.8) 0.1 x10^3/uL (1.0-4.8) Monocytes # (Auto) 0.0 x10^3/uL (0.0-1.1) 0.6 x10^3/uL (0.0-1.1) Eosinophils # (Auto) 0.0 x10^3/uL (0.0-0.7) 0.0 x10^3/uL (0.0-0.7) Basophils # (Auto) 0.0 x10^3/uL (0.0-0.2) 0.0 x10^3/uL (0.0-0.2) Segmented Neutrophils % 37 % (35-66) Band Neutrophils % 46 % (0-9) Lymphocytes % 12 % (24-48) Monocytes % 3 % (0-10) Eosinophils % 1 % (0-5) Metamyelocytes % 1 % (0-0) Platelet Estimate Decreased (ADEQUATE) Sodium Level 136 mmol/L (136-145) 138 mmol/L (136-145) Potassium Level 3.2 mmol/L (3.5-5.1) 2.7 mmol/L (3.5-5.1) Chloride Level 97 mmol/L (98-107) 100 mmol/L (98-107) Carbon Dioxide Level 23 mmol/L (21-32) 22 mmol/L (21-32) Anion Gap 16 (6-14) 16 (6-14) Blood Urea Nitrogen 19 mg/dL (8-26) 13 mg/dL (8-26) Creatinine 1.2 mg/dL (0.7-1.3) 0.9 mg/dL (0.7-1.3) Estimated GFR (Cockcroft-Gault) 65.5 91.3 BUN/Creatinine Ratio 16 (6-20) 14 (6-20) Glucose Level 122 mg/dL (70-99) 148 mg/dL (70-99) Calcium Level 8.2 mg/dL (8.5-10.1) 7.8 mg/dL (8.5-10.1) Total Bilirubin 1.4 mg/dL (0.2-1.0) 1.1 mg/dL (0.2-1.0) Aspartate Amino Transf (AST/SGOT) 38 U/L (15-37) 38 U/L (15-37) Alanine Aminotransferase (ALT/SGPT) 53 U/L (16-63) 47 U/L (16-63) Alkaline Phosphatase 68 U/L (46-116) 65 U/L (46-116) Troponin I Quantitative < 0.017 ng/mL (0.000-0.055) 0.105 ng/mL (0.000-0.055) MU-Iuc-O-Type Natriuretic Peptide 116 pg/mL (0-124) Total Protein 6.5 g/dL (6.4-8.2) 5.8 g/dL (6.4-8.2) Albumin 3.7 g/dL (3.4-5.0) 3.2 g/dL (3.4-5.0) Albumin/Globulin Ratio 1.3 (1.0-1.7) 1.2 (1.0-1.7) Urine Collection Type Unknown Urine Color Yellow Urine Clarity Clear Urine pH 7.0 (<5.0-8.0) Urine Specific [place] 1.010 (1.000-1.030) Urine Protein 100 mg/dL (NEG-TRACE) Urine Glucose (UA) Negative mg/dL (NEG) Urine Ketones (Stick) Trace mg/dL (NEG) Urine Blood Negative (NEG) Urine Nitrite Negative (NEG) Urine Bilirubin Negative (NEG) Urine Urobilinogen Dipstick 1.0 mg/dL (0.2 mg/dL) Urine Leukocyte Esterase Negative (NEG) Urine RBC 1-2 /HPF (0-2) Urine WBC Occ /HPF (0-4) Urine Squamous Epithelial Cells Few /LPF Urine Bacteria 0 /HPF (0-FEW) SARS-CoV-2 Antigen (Rapid) Negative (NEGATIVE) Assessment/Plan Assessment/Plan 1. Slight troponin elevation most probably demand ischemia. Patient is chest pain free and EKG without acute changes. 2. CAD: recent cath 09/26/20 showed three vessel CAD that was managed medically. This seems to be stable clinically. 2D echo 08/01 showed EF 50-55%. Continue current secondary prevention measures. 3. HTN: controlled 4. Acute sigmoid diverticulitis on CT abd, sepsis: continue antibiotics per ID 5. CML: continue current treatment per Hem/Onc Thank you for your consultation ULISSES NEUMANN MD Oct 01, 2020 10:43
--- NOTE | 2020-10-01 10:46 | RAD ---
EXAM: CT Abdomen and Pelvis without IV contrast CLINICAL HISTORY: Reason: fever abdo pain / Spl. Instructions: / History: COMPARISON: none TECHNIQUE: Helical CT of the abdomen and pelvis without intravenous contrast. Axial, coronal and sagi ttal reformatted images were generated. PQRS compliance statement - One or more of the following individualized dose reduction techniques wer e utilized for this study: 1. Automated exposure control 2. Adjustment of the mA and/or kV according to patient size 3. Use of iterative reconstruction technique FINDINGS: Lack of intravenous contrast limits evaluation of solid organs, vasculature, and lymph nodes. Lower chest: Lung bases are clear. Coronary calcifications are seen. Heart is not enlarged. Abdomen and Pelvis: Hepatic hypoattenuation likely fatty liver. Regions of focal fatty sparing at gallbladder fossa. High density material dependently within the gallbladder likely sludge. Gallbladder is otherwise unremark able. No biliary ductal dilatation. Pancreas and spleen are unremarkable. Adrenal glands are normal. Right kidney is not seen possibly congenital or postsurgical. Left kidney is enlarged. Perinephric in filtration about the left kidney particularly the lower pole and left ureter may be seen with ascendi ng infection including pyelonephritis. Reactive changes could also have this appearance. Sigmoid colonic diverticula with associated infiltration consistent with acute sigmoid diverticulitis . No discrete loculated fluid collection. No abscess. No free intraperitoneal gas. No small or large bowel dilatation. Moderate colonic stool content. No abdominal or pelvic lymphadenopathy. No abdominal or pelvic ascites. Aortic calcifications are see n. Aorta is grossly normal in caliber. Bones: Bilateral hip joint osteophytes are IMPRESSION: 1. Acute sigmoid diverticulitis without evidence for perforation or abscess. 2. Edematous appearance of the left kidney with infiltration about the left kidney and left ureter p articularly suspicious for infectious process such as pyelonephritis. Reactive changes could also hav e this appearance. 3. Hepatic hypoattenuation likely fatty liver. 4. Gallbladder sludge. Electronically signed by: Femi Lund MD (10/01/2020 10:44 AM) ZONIA
[2020-10-01] MEDS ORDERED: HALOPERIDOL LACTATE 5 MG/ML VIAL. IVP PRN (11:45)
[2020-10-01] MEDS ORDERED: diphenhydrAMINE 50 MG/ML VIAL IVP PRN (11:45)
[2020-10-01] MEDS ORDERED: chlordiazePOXIDE HCL 25 MG CAPSULE PO PRN ×2 (11:45)
[2020-10-01] MEDS ORDERED: cloNIDine HCL 0.1 MG TABLET PO PRN (11:45)
[2020-10-01] MEDS: DAPTOmycin (GENERIC) IVPB 530 MG in IV NORMAL SALINE 50ML 50 ML IV SCH (12:06)
[2020-10-01] MEDS ORDERED: HYDROcodone/APAP 10/325 1 TAB TABLET PO PRN (12:15)
[2020-10-01] MEDS: ACETAMINOPHEN 325 MG TABLET. PO PRN ×2 (12:59→23:25)
[2020-10-01] MEDS: CEFEPIME HCL IV Push 2 GM VIAL. IVP SCH ×2 (12:59→21:21)
[2020-10-01] MEDS: ATENOLOL 50 MG TABLET. PO SCH (13:00)
[2020-10-01] MEDS: TRIAMTERENE/HCTZ 37.5/25MG TABLET. PO SCH (13:00)
[2020-10-01] MEDS: ALLOPURINOL 300 MG TABLET. PO SCH (13:00)
[2020-10-01] MEDS: MULTIVITAMIN with MINERAL TABLET. PO SCH (13:00)
[2020-10-01] MEDS: ASPIRIN ENTERIC COATED 81 MG TABLET.DR. PO SCH (13:00)
[2020-10-01] MEDS: THIAMINE 100 MG TABLET. PO SCH (13:00)
--- NOTE | 2020-10-01 13:00 | HP ---
ADMIT DATE: 10/01/2020 CHIEF COMPLAINT: Tremors. HISTORY OF PRESENT ILLNESS: The patient is a pleasant 44-year-old male who drinks a lot of beer and he presented with tremors. It seems like he may have alcohol withdrawal, but he also meets sepsis criteria. I suspect this is a combination of alcohol withdrawal and sepsis. He spiked a fever of 103. He had a COVID test yesterday, which was negative, but PCR is still pending. He was out in the heat where it was over 100 degrees. He was not eating or drinking much. He apparently had a heart cath 5 days ago. I do not think any stents were placed. I discussed the case with the ER physician. We are going to admit the patient and consult Cardiology, Infectious Disease and Hematology/Oncology as the patient has a history of CML. PAST MEDICAL HISTORY: CML, recent cardiac cath with no stents, alcoholism, history of alcohol withdrawal. ALLERGIES: CELEBREX. FAMILY HISTORY: Hypertension. SOCIAL HISTORY: He drinks. I think he quit smoking and he is trying to quit drinking. MEDICATIONS: Reviewed. Please refer to the MRAD. REVIEW OF SYSTEMS: GENERAL: No history of weight change, weakness. SKIN: No bruising, hair changes or rashes. EYES: No blurred, double or loss of vision. NOSE AND THROAT: No history of nosebleeds, hoarseness or sore throat. HEART: No history of palpitations, chest pain or shortness of breath on exertion. LUNGS: Denies cough, hemoptysis, wheezing or shortness of breath. GASTROINTESTINAL: Denies changes in appetite, nausea, vomiting, diarrhea or constipation. GENITOURINARY: No history of frequency, urgency, hesitancy or nocturia. NEUROLOGIC: Denies history of numbness, tingling or weakness. PSYCHIATRIC: No history of panic, anxiety or depression. ENDOCRINE: No history of heat or cold intolerance, polyuria or polydipsia. EXTREMITIES: Denies muscle weakness, joint pain, pain on walking or stiffness. PHYSICAL EXAMINATION: VITALS: Within normal limits and are stable. GENERAL: No apparent distress. Alert and oriented. HEENT: Normal cephalic atraumatic, external auditory canals are patent EYES: Extraocular muscles are intact, pupils are equally round and reactive to light and accommodation MUSCULOSKELETAL: Well developed, well nourished, good range of motion ENDOCRINE: No thyromegaly was palpated LYMPHATICS: No cervical chain or axillary nodes were noted HEMATOPOIETIC: No bruising NECK: Supple, no JVD, no thyromegaly was noted. LUNGS: Clear to auscultation in all lung virgen without rhonchi or wheezing. HEART: RRR, S1, S2 present. Peripheral pulses intact, no obvious murmurs were noted. ABDOMEN: Soft, nontender. Positive bowel sounds no organomegaly, normal bowel sounds. EXTREMITIES: Without any cyanosis, clubbing, or edema. Pedal pulses intact, Homans sign is negative. NEUROLOGIC: He is shaking. PSYCHIATRIC: He is a little anxious. SKIN: He is a little diaphoretic. VASCULAR: Good capillary refill, neurovascular bundle appears to be intact. LABORATORY DATA: White count 1.7, hemoglobin 15, platelets 94. Electrolytes: Sodium 138, potassium 2.7, chloride 100, bicarbonate 22, BUN 13, creatinine 0.9, glucose 148. Troponins were a little high at 0.105. Chest x-ray is negative. CT of the abdomen shows acute sigmoid diverticulitis. ASSESSMENT AND PLAN: Diverticulitis, sepsis and alcohol withdrawal and leukopenia, thrombocytopenia, elevated troponin, hypokalemia. The patient will be admitted. We will consult Hematology/Oncology, Cardiology, and Infectious Disease. IV antibiotics, IV fluids, home meds. DVT prophylaxis. Full code. Trend labs. Replace potassium. Long-term prognosis is guarded. BERNARDO/HARRIET DR: José Miguel TID: [id number]
[2020-10-01] MEDS: HYDROcodone/APAP 10/325 1 TAB TABLET PO PRN ×2 (17:02→23:28)
--- NOTE | 2020-10-01 19:55 | CONS ---
DATE OF CONSULTATION: 10/01/2020 REFERRING PHYSICIAN: Dr. Ornelas. REASON FOR CONSULTATION: Fever of unknown origin. HISTORY OF PRESENT ILLNESS: A 44-year-old male with history of CML, on Gleevec for the last eight years, who follows with Dr. Kunz , coronary artery disease who underwent cardiac catheterization five days ago, was found to have triple vessel disease with moderate distal ischemia, stable LV function, presented to the ER with fever and shaking chills which started yesterday after pt and his family were havng a alliance party for their daughter who graduated from high school and were celebrating her 17th birthday. Pt initially blamed it on the heat. The patient did not want to come to the hospital, but his daughter insisted, they called EMS. He had one beer for her birthday celebration yesterday. He was febrile at 103 last night. In ED his lab revealed white count of 1.7, platelets of 94, bilirubin of 1.4 and aspartate aminotransferase of 38, albumin was 3.7. UA was negative. Troponin was normal. The patient had bandemia at 46%. Potassium of 3.2, creatinine of 1.2. He was given a dose of cefepime, currently is on vancomycin. ID consultation has been requested for antibiotic management. Chest x-ray was negative for any acute process. Blood cultures are pending at this time. The patient denies any headache, sore throat, difficulty swallowing, dental pain, nausea, vomiting. Does have some abdominal discomfort in the right lower quadrant. Denies any new medication. He has not received COVID vaccine due to his underlying leukemia. The patient denies any sick contact, recent travel,tick bite outdoor activities. PAST MEDICAL HISTORY: CML on Gleevec, coronary artery disease, history of alcohol dependence, no drink for the last 5 days after he underwent cardiac catheterization, gout, hypertension, and diffuse hepatic steatosis. PAST SURGICAL HISTORY: Hip replacement. ALLERGIES: CELEBREX GI bleed. FAMILY HISTORY: As per HPI. SOCIAL HISTORY: Quit smoking. Alcohol, drinks heavily, but none for the last 5 days. Drugs: None. Lives at home with and daughter, has a cat. CURRENT MEDICATIONS: Cefepime one-time dose, vancomycin. Other medications reviewed in medication list. REVIEW OF SYSTEMS: Negative except for above in HPI. PHYSICAL EXAMINATION: VITAL SIGNS: Temperature 99.2, pulse 109, respiratory rate 22, blood pressure 122/73, oxygen saturation 98% on room air. T-max 103. GENERAL: Alert, oriented x3 male, tired appearing, lying in bed comfortably, in no acute distress. HEENT: Normocephalic, atraumatic. Anicteric. No thrush. NECK: Supple. No JVD. No lymphadenopathy. LUNGS: Clear bilaterally. No wheezing. HEART: S1, S2. No gallops or murmurs. ABDOMEN: Soft, mild tenderness present in the right lower quadrant. No rebound or guarding. No hepatosplenomegaly. EXTREMITIES: No edema, no cyanosis. SKIN: Warm, dry, no generalized rash. NEUROLOGIC: Alert, oriented x3, grossly nonfocal. PSYCHIATRIC: Calm and cooperative. LABORATORY DATA: WBC 1.7, repeat was 6.8, hemoglobin 15.5, hematocrit 42.6, platelets 94, bands 46. Sodium 138, potassium 2.7, chloride 100, bicarbonate 22, BUN 13, creatinine 0.9, glucose 148, total bilirubin 1.1 was 1.4, AST 38. Troponin 0.105, albumin 3.2. SARS COVID rapid negative. Repeat is pending at this time. UA negative. IMAGING: Chest x-ray negative. Micro blood culture, urine culture pending at this time. IMPRESSION: 1. Fever. 2. Leukopenia and bandemia. Leucopenia resolved 3. Chronic myelogenous leukemia, on Gleevec. 4. History of alcohol dependence. 5. Hepatic steatosis with abnormal LFTs. 6. Thrombocytopenia. 7. Coronary artery disease status post recent cardiac catheterization with moderate coronary stent with moderate ischemic changes, stable LV function. 6. Abdominal pain and diarrhea 7. 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 RECOMMENDATIONS: 1. Discontinue IV vancomycin due to a solitary kidney. 2. Start daptomycin. 3. Start doxycycline. 4. Restart cefepime. 5. Obtain Ehrlichia PCR 6. Check C diff and enteric panel 7. Obtain a CT abdomen and pelvis without contrast. 8. Follow up labs and cultures. 9. Continue supportive care. Thank you for allowing me to participate in this patient's care. If you have any questions, do not hesitate to contact me. D/W ARMANDO CARNES/WHITNEY DR: Shubham TID: [id number] MTDD
[2020-10-01] MEDS ORDERED: chlordiazePOXIDE HCL 25 MG CAPSULE PO SCH (21:00)
[2020-10-01] MEDS: LACTOBACILLUS RHAMNOSUS GG 1 CAPSULE. PO SCH (21:18)
[2020-10-01] MEDS: chlordiazePOXIDE HCL 25 MG CAPSULE PO SCH (21:18)
[2020-10-02 03:00] VITALS: BP 101/62
[2020-10-02] MEDS: IV NORMAL SALINE 1000ML BAG 1,000 ML IV SCH ×2 (06:08→15:19)
[2020-10-02] MEDS: CEFEPIME HCL IV Push 2 GM VIAL. IVP SCH ×3 (06:08→21:52)
[2020-10-02 06:46] LABS: ALBUMIN 2.8 g/dL (3.4-5.0); ALBUMIN/GLOBULIN RATIO 1.1 (1.0-1.7); CALCIUM 8.1 mg/dL (8.5-10.1); CREATININE 0.7 mg/dL (0.7-1.3); POTASSIUM 3.2 mmol/L (3.5-5.1); TOTAL BILIRUBIN 1.2 mg/dL (0.2-1.0); TOTAL PROTEIN 5.3 g/dL (6.4-8.2)
[2020-10-02 07:00] VITALS: BP 112/74
--- NOTE | 2020-10-02 08:56 | PDOC ---
PROGRESS NOTES Date of Service: DATE: 10/02/20 TIME: 08:[address] of the abdomen shows acute sigmoid diverticulitis. history of CML. ASSESSMENT Diverticulitis, acute sepsis alcohol withdrawal leukopenia, history of CML. 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 thrombocytopenia, elevated troponin, hypokalemia. The patient will be admitted. consult Hematology/Oncology, Cardiology, and Infectious Disease. IV antibiotics, IV fluids, home meds. DVT prophylaxis. Full code. Trend labs. Replace potassium. Long-term prognosis is guarded. History of Present Illness History of Present Illness CHIEF COMPLAINT: Tremors. HISTORY OF PRESENT ILLNESS: The patient is a pleasant 44-year-old male who drinks a lot of beer and he presented with tremors. It seems like he may have alcohol withdrawal, but he also meets sepsis criteria. I suspect this is a combination of alcohol withdrawal and sepsis. He spiked a fever of 103. He had a COVID test yesterday, which was negative, but PCR is still pending. He was out in the heat where it was over 100 degrees. He was not eating or drinking much. He apparently had a heart cath 5 days ago. I do not think any stents were placed. I discussed the case with the ER physician. We are going to admit the patient and consult Cardiology, Infectious Disease and Hematology/Oncology as the patient has a history of CML. PAST MEDICAL HISTORY: CML, recent cardiac cath with no stents, alcoholism, history of alcohol withdrawal. ALLERGIES: CELEBREX. FAMILY HISTORY: Hypertension. SOCIAL HISTORY: He drinks. I think he quit smoking and he is trying to quit drinking. MEDICATIONS: Reviewed. Please refer to the MRAD. REVIEW OF SYSTEMS: GENERAL: No history of weight change, weakness. SKIN: No bruising, hair changes or rashes. EYES: No blurred, double or loss of vision. NOSE AND THROAT: No history of nosebleeds, hoarseness or sore throat. HEART: No history of palpitations, chest pain or shortness of breath on exertion. LUNGS: Denies cough, hemoptysis, wheezing or shortness of breath. GASTROINTESTINAL: Denies changes in appetite, nausea, vomiting, diarrhea or constipation. GENITOURINARY: No history of frequency, urgency, hesitancy or nocturia. NEUROLOGIC: Denies history of numbness, tingling or weakness. PSYCHIATRIC: No history of panic, anxiety or depression. ENDOCRINE: No history of heat or cold intolerance, polyuria or polydipsia. EXTREMITIES: Denies muscle weakness, joint pain, pain on walking or stiffness. 6 Diverticulitis, sepsis alcohol withdrawal leukopenia, thrombocytopenia, elevated troponin, hypokalemia. The patient will be admitted. We will consult Hematology/Oncology, Cardiology, and Infectious Disease. IV antibiotics, IV fluids, home meds. DVT prophylaxis. Full code. Trend labs. Replace potassium. Long-term prognosis is guarded. Cont daptomycin.,doxycycline.,cefepime. Start Flagyl Ehrlichia PCR order canceled by administration CT abdomen and pelvis without contrast. noted Vitals Vitals Vital Signs Date Time Temp Pulse Resp B/P (MAP) Pulse Ox O2 Delivery O2 Flow Rate FiO2 10/02/20 07:00 100.4 113 18 112/74 (87) 93 Room Air 100.4 Physical Exam Physical Exam sitting bedside chair General: Alert, Oriented X3, Cooperative, No acute distress, Other (tremors) Heart: Regular rate, Normal S1, Normal S2 Abdomen: Soft Extremities: No edema Labs LABS PQRS compliance statement - One or more of the following individualized dose reduction techniques were utilized for this study: 1. Automated exposure control 2. Adjustment of the mA and/or kV according to patient size 3. Use of iterative reconstruction technique FINDINGS: Lack of intravenous contrast limits evaluation of solid organs, vasculature, and lymph nodes. Lower chest: Lung bases are clear. Coronary calcifications are seen. Heart is not enlarged. Abdomen and Pelvis: Hepatic hypoattenuation likely fatty liver. Regions of focal fatty sparing at gallbladder fossa. High density material dependently within the gallbladder likely sludge. Gallbladder is otherwise unremarkable. No biliary ductal dilatation. Pancreas and spleen are unremarkable. Adrenal glands are normal. Right kidney is not seen possibly congenital or postsurgical. Left kidney is enlarged. Perinephric infiltration about the left kidney particularly the lower pole and left ureter may be seen with ascending infection including pyelonephritis. Reactive changes could also have this appearance. Sigmoid colonic diverticula with associated infiltration consistent with acute sigmoid diverticulitis. No discrete loculated fluid collection. No abscess. No free intraperitoneal gas. No small or large bowel dilatation. Moderate colonic stool content. No abdominal or pelvic lymphadenopathy. No abdominal or pelvic ascites. Aortic calcifications are seen. Aorta is grossly normal in caliber. Bones: Bilateral hip joint osteophytes are IMPRESSION: 1. Acute sigmoid diverticulitis without evidence for perforation or abscess. 2. Edematous appearance of the left kidney with infiltration about the left ki dney and left ureter particularly suspicious for infectious process such as pyelonephritis. Reactive changes could also have this appearance. 3. Hepatic hypoattenuation likely fatty liver. 4. Gallbladder sludge. Electronically signed by: Femi Lund MD (10/01/2020 10:44 AM) [facility] DICTATED and SIGNED BY: FEMI LUND MD DATE: 10/01/20 [id number] Laboratory Tests Test 10/01/20 23:31 10/02/20 03:00 10/02/20 05:50 Lactic Acid Level 2.3 mmol/L (0.4-2.0) 0.8 mmol/L (0.4-2.0) Sodium Level 136 mmol/L (136-145) Potassium Level 3.2 mmol/L (3.5-5.1) Chloride Level 101 mmol/L (98-107) Carbon Dioxide Level 25 mmol/L (21-32) Anion Gap 10 (6-14) Blood Urea Nitrogen 9 mg/dL (8-26) Creatinine 0.7 mg/dL (0.7-1.3) Estimated GFR (Cockcroft-Gault) 122.0 BUN/Creatinine Ratio 13 (6-20) Glucose Level 91 mg/dL (70-99) Calcium Level 8.1 mg/dL (8.5-10.1) Total Bilirubin 1.2 mg/dL (0.2-1.0) Aspartate Amino Transf (AST/SGOT) 78 U/L (15-37) Alanine Aminotransferase (ALT/SGPT) 83 U/L (16-63) Alkaline Phosphatase 59 U/L (46-116) Total Protein 5.3 g/dL (6.4-8.2) Albumin 2.8 g/dL (3.4-5.0) Albumin/Globulin Ratio 1.1 (1.0-1.7) Assessment and Plan Assessmemt and Plan Problems Medical Problems: (1) Fever, unknown origin Status: Acute (2) Leukopenia Status: Acute Comment Review of Relevant I have reviewed the following items rosalie (where applicable) has been applied. Labs Laboratory Tests Test 09/30/20 19:53 6/19/21 20:48 09/30/20 23:27 10/01/20 01:40 White Blood Count 1.7 x10^3/uL (4.0-11.0) 6.8 x10^3/uL (4.0-11.0) Red Blood Count 4.46 x10^6/uL (4.30-5.70) 4.30 x10^6/uL (4.30-5.70) Hemoglobin 15.5 g/dL (13.0-17.5) 14.6 g/dL (13.0-17.5) Hematocrit 42.6 % (39.0-53.0) 41.3 % (39.0-53.0) Mean Corpuscular Volume 96 fL (79-100) 96 fL (79-100) Mean Corpuscular Hemoglobin 35 pg (25-35) 34 pg (25-35) Mean Corpuscular Hemoglobin Concent 36 g/dL (31-37) 35 g/dL (31-37) Red Cell Distribution Width 14.1 % (11.5-14.5) 13.8 % (11.5-14.5) Platelet Count 94 x10^3/uL (140-400) 90 x10^3/uL (140-400) Neutrophils (%) (Auto) 90 % (31-73) 89 % (31-73) Lymphocytes (%) (Auto) 5 % (24-48) 2 % (24-48) Monocytes (%) (Auto) 3 % (0-9) 8 % (0-9) Eosinophils (%) (Auto) 1 % (0-3) 0 % (0-3) Basophils (%) (Auto) 1 % (0-3) 1 % (0-3) Neutrophils # (Auto) 1.5 x10^3/uL (1.8-7.7) 6.0 x10^3/uL (1.8-7.7) Lymphocytes # (Auto) 0.1 x10^3/uL (1.0-4.8) 0.1 x10^3/uL (1.0-4.8) Monocytes # (Auto) 0.0 x10^3/uL (0.0-1.1) 0.6 x10^3/uL (0.0-1.1) Eosinophils # (Auto) 0.0 x10^3/uL (0.0-0.7) 0.0 x10^3/uL (0.0-0.7) Basophils # (Auto) 0.0 x10^3/uL (0.0-0.2) 0.0 x10^3/uL (0.0-0.2) Segmented Neutrophils % 37 % (35-66) Band Neutrophils % 46 % (0-9) Lymphocytes % 12 % (24-48) Monocytes % 3 % (0-10) Eosinophils % 1 % (0-5) Metamyelocytes % 1 % (0-0) Platelet Estimate Decreased (ADEQUATE) Sodium Level 136 mmol/L (136-145) 138 mmol/L (136-145) Potassium Level 3.2 mmol/L (3.5-5.1) 2.7 mmol/L (3.5-5.1) Chloride Level 97 mmol/L (98-107) 100 mmol/L (98-107) Carbon Dioxide Level 23 mmol/L (21-32) 22 mmol/L (21-32) Anion Gap 16 (6-14) 16 (6-14) Blood Urea Nitrogen 19 mg/dL (8-26) 13 mg/dL (8-26) Creatinine 1.2 mg/dL (0.7-1.3) 0.9 mg/dL (0.7-1.3) Estimated GFR (Cockcroft-Gault) 65.5 91.3 BUN/Creatinine Ratio 16 (6-20) 14 (6-20) Glucose Level 122 mg/dL (70-99) 148 mg/dL (70-99) Calcium Level 8.2 mg/dL (8.5-10.1) 7.8 mg/dL (8.5-10.1) Total Bilirubin 1.4 mg/dL (0.2-1.0) 1.1 mg/dL (0.2-1.0) Aspartate Amino Transf (AST/SGOT) 38 U/L (15-37) 38 U/L (15-37) Alanine Aminotransferase (ALT/SGPT) 53 U/L (16-63) 47 U/L (16-63) Alkaline Phosphatase 68 U/L (46-116) 65 U/L (46-116) Troponin I Quantitative < 0.017 ng/mL (0.000-0.055) 0.105 ng/mL (0.000-0.055) RH-Mfz-H-Type Natriuretic Peptide 116 pg/mL (0-124) Total Protein 6.5 g/dL (6.4-8.2) 5.8 g/dL (6.4-8.2) Albumin 3.7 g/dL (3.4-5.0) 3.2 g/dL (3.4-5.0) Albumin/Globulin Ratio 1.3 (1.0-1.7) 1.2 (1.0-1.7) Urine Collection Type Unknown Urine Color Yellow Urine Clarity Clear Urine pH 7.0 (<5.0-8.0) Urine Specific [place] 1.010 (1.000-1.030) Urine Protein 100 mg/dL (NEG-TRACE) Urine Glucose (UA) Negative mg/dL (NEG) Urine Ketones (Stick) Trace mg/dL (NEG) Urine Blood Negative (NEG) Urine Nitrite Negative (NEG) Urine Bilirubin Negative (NEG) Urine Urobilinogen Dipstick 1.0 mg/dL (0.2 mg/dL) Urine Leukocyte Esterase Negative (NEG) Urine RBC 1-2 /HPF (0-2) Urine WBC Occ /HPF (0-4) Urine Squamous Epithelial Cells Few /LPF Urine Bacteria 0 /HPF (0-FEW) Coronavirus (COVID-19)(PCR) Negative (NEGATIVE) SARS-CoV-2 Antigen (Rapid) Negative (NEGATIVE) Test 10/01/20 23:31 10/02/20 03:00 10/02/20 05:50 Lactic Acid Level 2.3 mmol/L (0.4-2.0) 0.8 mmol/L (0.4-2.0) Sodium Level 136 mmol/L (136-145) Potassium Level 3.2 mmol/L (3.5-5.1) Chloride Level 101 mmol/L (98-107) Carbon Dioxide Level 25 mmol/L (21-32) Anion Gap 10 (6-14) Blood Urea Nitrogen 9 mg/dL (8-26) Creatinine 0.7 mg/dL (0.7-1.3) Estimated GFR (Cockcroft-Gault) 122.0 BUN/Creatinine Ratio 13 (6-20) Glucose Level 91 mg/dL (70-99) Calcium Level 8.1 mg/dL (8.5-10.1) Total Bilirubin 1.2 mg/dL (0.2-1.0) Aspartate Amino Transf (AST/SGOT) 78 U/L (15-37) Alanine Aminotransferase (ALT/SGPT) 83 U/L (16-63) Alkaline Phosphatase 59 U/L (46-116) Total Protein 5.3 g/dL (6.4-8.2) Albumin 2.8 g/dL (3.4-5.0) Albumin/Globulin Ratio 1.1 (1.0-1.7) Laboratory Tests Test 10/01/20 23:31 10/02/20 03:00 10/02/20 05:50 Lactic Acid Level 2.3 mmol/L (0.4-2.0) 0.8 mmol/L (0.4-2.0) Sodium Level 136 mmol/L (136-145) Potassium Level 3.2 mmol/L (3.5-5.1) Chloride Level 101 mmol/L (98-107) Carbon Dioxide Level 25 mmol/L (21-32) Anion Gap 10 (6-14) Blood Urea Nitrogen 9 mg/dL (8-26) Creatinine 0.7 mg/dL (0.7-1.3) Estimated GFR (Cockcroft-Gault) 122.0 BUN/Creatinine Ratio 13 (6-20) Glucose Level 91 mg/dL (70-99) Calcium Level 8.1 mg/dL (8.5-10.1) Total Bilirubin 1.2 mg/dL (0.2-1.0) Aspartate Amino Transf (AST/SGOT) 78 U/L (15-37) Alanine Aminotransferase (ALT/SGPT) 83 U/L (16-63) Alkaline Phosphatase 59 U/L (46-116) Total Protein 5.3 g/dL (6.4-8.2) Albumin 2.8 g/dL (3.4-5.0) Albumin/Globulin Ratio 1.1 (1.0-1.7) Microbiology 10/01/20 Blood Culture - Preliminary, Resulted NO GROWTH AFTER 1 DAY Medications Current Medications Sodium Chloride 1,000 ml @ 1,000 mls/hr 1X ONCE IV Last administered on 09/30/20 19:56; Start 09/30/20 at 20:00; Stop 09/30/20 at 20:59; Status DC Sodium Chloride 1,000 ml @ 1,000 mls/hr 1X ONCE IV Last administered on 09/30/20at 19:56; Start 09/30/20 at 20:00; Stop 09/30/20 at 20:59; Status DC Acetaminophen (Tylenol) 1,000 mg 1X ONCE PO Last administered on 09/30/20at 21:31; Start 09/30/20 at 21:30; Stop 09/30/20 at 21:31; Status DC Cefepime HCl (Maxipime) 1 gm 1X ONCE IVP Last administered on 09/30/20; Start 09/30/20 at 21:30; Stop 09/30/20 at 21:31; Status DC Vancomycin HCl 2 gm/Sodium Chloride 500 ml @ 250 mls/hr 1X ONCE IV Last administered on 09/30/20at :; Start 09/30/20 at 21:30; Stop 09/30/20 at 23:29; Status DC Vancomycin HCl (Vanco Per Pharmacy) 1 each PRN DAILY PRN MC SEE COMMENTS Last administered on 10/01/20at 03:08; Start 09/30/20 at 21:15; Stop 10/01/20 at 09:04; Status DC Ondansetron HCl (Zofran) 4 mg PRN Q8HRS PRN IV NAUSEA/VOMITING 1ST CHOICE; Start 09/30/20 at 21:45; Stop 10/01/20 at 21:44; Status DC Fentanyl Citrate (Fentanyl 2ml Vial) 50 mcg PRN Q1HR PRN IV SEVERE PAIN 7-10 Last administered on 10/01/20at 19:22; Start 09/30/20 at 21:45; Stop 10/01/20 at 21:44; Status DC Sodium Chloride 1,000 ml @ 100 mls/hr Q10H IV Last administered on 10/01/20at 18:00; Start 09/30/20 at 22:00; Stop 10/01/20 at 21:59; Status DC Potassium Chloride (Klor-Con) 40 meq 1X ONCE PO Last administered on 10/01/20at 02:57; Start 10/01/20 at 03:00; Stop 10/01/20 at 03:02; Status DC Potassium Chloride (Klor-Con) 40 meq 1X ONCE PO Last administered on 10/01/20at 08:09; Start 10/01/20 at 08:00; Stop 10/01/20 at 08:01; Status DC Potassium Chloride/Water 100 ml @ 100 mls/hr Q1H IV Last administered on 10/01/20at 10:29; Start 10/01/20 at 03:00; Stop 10/01/20 at 06:59; Status DC Vancomycin HCl 1.5 gm/Sodium Chloride 500 ml @ 250 mls/hr Q8HRS IV Last administered on 10/01/20at 06:11; Start 10/01/20 at 06:00; Stop 10/01/20 at 09:00; Status DC Vancomycin HCl (Vancomycin Trough Level) 1 each 1X ONCE MC ; Start 10/01/20 at 21:30; Stop 10/01/20 at 21:31; Status Cancel Cefepime HCl (Maxipime) 2 gm Q8HRS IVP Last administered on 10/02/20at 06:08; Start 10/01/20 at 14:00 Doxycycline Hyclate (Vibra-Tab) 100 mg BID PO Last administered on 10/01/20at 21:18; Start 10/01/20 at 09:00 Daptomycin 530 mg/ Sodium Chloride 50 ml @ 100 mls/hr Q24H IV Last administered on 10/01/20at 12:06; Start 10/01/20 at 10:00 Chlordiazepoxide (Librium) 50 mg PRN Q1HR PRN PO For CIWA 8-14 Last administered on 10/01/20at 13:00; Start 10/01/20 at 11:45 Chlordiazepoxide (Librium) 100 mg PRN Q1HR PRN PO For CIWA 15 or greater; Start 10/01/20 at 11:45 Lorazepam (Ativan Inj) 2 mg PRN Q1HR PRN IV For CIWA 8-14; Start 10/01/20 at 11:45 Lorazepam (Ativan Inj) 4 mg PRN Q1HR PRN IV For CIWA 15 or greater; Start 09/13 at 11:45 Haloperidol Lactate (Haldol Inj) 5 mg PRN Q4HRS PRN IVP Hallucinatns,Confusn,Delirium; Start 10/01/20 at 11:45 Diphenhydramine HCl (Benadryl) 25 mg PRN Q15MIN PRN IVP EPS symptoms 2'Haldol admin; Start 10/01/20 at 11:45 Clonidine HCl (Catapres) 0.1 mg PRN Q1HR PRN PO SBP > 180 or DBP > 100, MRX3; Start 10/01/20 at 11:45 Acetaminophen (Tylenol) 650 mg PRN Q6HRS PRN PO MILD PAIN / TEMP > 100.3'F Last administered on 10/01/20at 23:25; Start 10/01/20 at 11:45 Allopurinol (Zyloprim) 300 mg DAILY PO Last administered on 10/01/20at 13:00; Start 10/01/20 at 13:00 Aspirin (Ecotrin) 81 mg DAILY PO Last administered on 10/01/20at 13:00; Start 10/01/20 at 13:00 Atenolol (Tenormin) 50 mg DAILY PO Last administered on 10/01/20at 13:00; Start 10/01/20 at 13:00 Chlordiazepoxide (Librium) 50 mg BID PO Last administered on 10/01/20at 21:18; Start 10/01/20 at 21:00 Chlordiazepoxide (Librium) 50 mg HS PO ; Start 10/01/20 at 21:00; Status UNV Acetaminophen/ Hydrocodone Bitart (Lortab 10/325) 1 tab PRN Q6HRS PRN PO MODERATE PAIN 4-6 Last administered on 10/01/20at 23:28; Start 10/01/20 at 12:15 Multivitamins (Thera M Plus) 1 tab DAILY PO Last administered on 10/01/20at 13:00; Start 10/01/20 at 13:00 Thiamine Mononitrate (Vitamin B-1) 100 mg DAILY PO Last administered on 10/01/20at 13:00; Start 10/01/20 at 13:00 Triamterene/HCTZ (Maxzide 37.5/ 25mg) 1 tab DAILY PO Last administered on 10/01at 13:00; Start 10/01/20 at 13:00 Non-Formulary Medication (Imatinib Mesylate (Gleevec)) 400 mg HS PO Last administered on 10/01/20at 21:18; Start 10/01/20 at 21:00 Acetaminophen/ Hydrocodone Bitart (Lortab 10/325) 2 tab PRN Q6HRS PRN PO SEVERE PAIN 7-10 Last administered on 10/02/20at 06:21; Start 10/01/20 at 12:15 Lactobacillus Rhamnosus (Culturelle) 1 cap BID PO Last administered on 10/01/20at 21:18; Start 10/01/20 at 21:00 Sodium Chloride 1,000 ml @ 100 mls/hr Q10H IV Last administered on 10/02/20at 06:08; Start 10/02/20 at 05:30 Active Scripts Active Thera-M Tablet (Multivits,Ca,Minerals/Iron/Fa) 1 Each Tablet 1 Tab PO DAILY 30 Days Vitamin B-1 (Thiamine Mononitrate) 100 Mg Tablet 100 Mg PO DAILY 30 Days Reported Chlordiazepoxide Hcl 25 Mg Capsule 50 Mg PO DAILY Aspirin Ec (Aspirin) 81 Mg Tablet.dr 1 Tab PO DAILY Triamterene-Hctz 37.5-25 Mg Tb (Triamterene/Hydrochlorothiazid) 1 Each Tablet 1 Tab PO DAILY Atenolol 50 Mg Tablet 50 Mg PO DAILY Gleevec (Imatinib Mesylate) 400 Mg Tablet 400 Mg PO HS Allopurinol 300 Mg Tablet 1 Tab PO DAILY Hydrocodone-Apap 10-325 (Hydrocodone Bit/Acetaminophen) 1 Each Tablet 1-2 Tab PO PRN Q6HRS PRN Chlordiazepoxide Hcl 25 Mg Capsule 50 Mg PO HS Vitals/I & O Vital Sign - Last 24 Hours 10/01/20 10/01/20 10/01/20 10/01/20 11:00 13:00 15:00 17:02 Temp 100.1 98.8 100.1 98.8 Pulse 113 113 98 Resp 18 20 B/P (MAP) 107/71 (83) 107/71 111/61 (78) Pulse Ox 94 97 O2 Delivery Room Air Room Air Room Air 10/01/20 10/01/20 10/01/20 10/01/20 19:00 19:22 20:00 23:00 Temp 98.2 101.0 98.2 101.0 Pulse 98 102 Resp 20 20 20 B/P (MAP) 122/87 (99) 138/85 (102) Pulse Ox 97 97 97 O2 Delivery Room Air Room Air Room Air Room Air 10/01/20 10/01/20 10/02/20 10/02/20 23:28 23:58 03:00 06:21 Temp 99.1 99.1 Pulse 98 Resp 18 16 18 18 B/P (MAP) 101/62 (75) Pulse Ox 97 96 96 96 O2 Delivery Room Air Room Air Room Air Room Air 10/02/20 10/02/20 06:51 07:00 Temp 100.4 100.4 Pulse 113 Resp 18 18 B/P (MAP) 112/74 (87) Pulse Ox 96 93 O2 Delivery Room Air Room Air Intake and Output 10/01/20 10/01/20 10/02/20 14:59 22:59 06:59 Intake Total 1400 ml 1150 ml 1500 ml Output Total 500 ml 850 ml Balance 900 ml 1150 ml 650 ml Justicifation of Admission Dx: Justifications for Admission: Justification of Admission Dx: Yes Sepsis: Bacteremia ZIGGY NUÑEZ MD Oct 02, 2020 08:56
[2020-10-02] MEDS: chlordiazePOXIDE HCL 25 MG CAPSULE PO SCH ×2 (09:04→21:51)
[2020-10-02] MEDS: THIAMINE 100 MG TABLET. PO SCH (09:04)
[2020-10-02] MEDS: TRIAMTERENE/HCTZ 37.5/25MG TABLET. PO SCH (09:04)
[2020-10-02] MEDS: ASPIRIN ENTERIC COATED 81 MG TABLET.DR. PO SCH (09:04)
[2020-10-02] MEDS: ALLOPURINOL 300 MG TABLET. PO SCH (09:04)
[2020-10-02] MEDS: LACTOBACILLUS RHAMNOSUS GG 1 CAPSULE. PO SCH (09:04)
[2020-10-02] MEDS: DOXYCYCLINE HYCLATE 100 MG TABLET PO SCH ×2 (09:04→21:51)
[2020-10-02] MEDS: MULTIVITAMIN with MINERAL TABLET. PO SCH (09:04)
[2020-10-02] MEDS: ATENOLOL 50 MG TABLET. PO SCH (09:05)
--- NOTE | 2020-10-02 10:31 | PDOC ---
Infectious Disease Note Subjective: Subjective Patient feels a little better today Had large loose bowel movement yesterday none today Denies any symptoms Denies cough shortness of breath nausea vomiting hematochezia or melena or symptoms Vital Signs: Vital Signs Vital Signs Date Time Temp Pulse Resp B/P (MAP) Pulse Ox O2 Delivery O2 Flow Rate FiO2 10/02/20 09:05 113 112/74 10/02/20 07:00 100.4 18 93 Room Air 100.4 Physical Exam: PHYSICAL EXAM GENERAL: Alert, oriented x3 male, tired appearing, lying in bed comfortably, in no acute distress. HEENT: Normocephalic, atraumatic. Anicteric. No thrush. NECK: Supple. No JVD. No lymphadenopathy. LUNGS: Clear bilaterally. No wheezing. HEART: S1, S2. No gallops or murmurs. ABDOMEN: Soft, mild tenderness present in the right lower quadrant. No rebound or guarding. No hepatosplenomegaly. EXTREMITIES: No edema, no cyanosis. SKIN: Warm, dry, no generalized rash. NEUROLOGIC: Alert, oriented x3, grossly nonfocal. PSYCHIATRIC: Calm and cooperative. Medications: Inpatient Meds: Medications reviewed. Labs: Lab Laboratory Tests Test 10/01/20 23:31 10/02/20 03:00 10/02/20 05:50 Lactic Acid Level 2.3 mmol/L (0.4-2.0) 0.8 mmol/L (0.4-2.0) Sodium Level 136 mmol/L (136-145) Potassium Level 3.2 mmol/L (3.5-5.1) Chloride Level 101 mmol/L (98-107) Carbon Dioxide Level 25 mmol/L (21-32) Anion Gap 10 (6-14) Blood Urea Nitrogen 9 mg/dL (8-26) Creatinine 0.7 mg/dL (0.7-1.3) Estimated GFR (Cockcroft-Gault) 122.0 BUN/Creatinine Ratio 13 (6-20) Glucose Level 91 mg/dL (70-99) Calcium Level 8.1 mg/dL (8.5-10.1) Total Bilirubin 1.2 mg/dL (0.2-1.0) Aspartate Amino Transf (AST/SGOT) 78 U/L (15-37) Alanine Aminotransferase (ALT/SGPT) 83 U/L (16-63) Alkaline Phosphatase 59 U/L (46-116) Total Protein 5.3 g/dL (6.4-8.2) Albumin 2.8 g/dL (3.4-5.0) Albumin/Globulin Ratio 1.1 (1.0-1.7) Objective: Assessment: 1. Fever. Improving 2. Leukopenia and bandemia. Leucopenia resolved 3. Chronic myelogenous leukemia, on Gleevec. 4. History of alcohol dependence. 5. Hepatic steatosis with abnormal LFTs. 6. Thrombocytopenia. 7. Coronary artery disease status post recent cardiac catheterization with moderate coronary stent with moderate ischemic changes, stable LV function. 6. Abdominal pain and diarrhea 7. 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 8. CT Abn Lt Pyelo changes, ua neg, no symptoms 9. lactic acidosis improved Plan: Plan of Care Cont daptomycin.,doxycycline.,cefepime. Start Flagyl Ehrlichia PCR order canceled by administration CT abdomen and pelvis without contrast. noted BC remain neg so far Follow up labs and cultures. Continue supportive care. PHI JONES MD Oct 02, 2020 10:31
[2020-10-02] MEDS: DAPTOmycin (GENERIC) IVPB 530 MG in IV NORMAL SALINE 50ML 50 ML IV SCH (10:44)
[2020-10-02 10:46] LABS: BASO # 0.1 x10^3/uL (0.0-0.2); BASO % 1 % (0-3); EOS # 0.1 x10^3/uL (0.0-0.7); EOS % 2 % (0-3); HEMATOCRIT 43.6 % (39.0-53.0); HEMOGLOBIN 15.5 g/dL (13.0-17.5); LYMPH # 0.7 x10^3/uL (1.0-4.8); LYMPH % 9 % (24-48); MEAN CORPUSCULAR HEMOGLOBIN 34 pg (25-35); MEAN CORPUSCULAR HGB CONC 36 g/dL (31-37); MEAN CORPUSCULAR VOLUME 97 fL (79-100); MONO # 1.3 x10^3/uL (0.0-1.1); MONO % 17 % (0-9); NEUT # 5.6 x10^3/uL (1.8-7.7); NEUT % 73 % (31-73); PLATELET COUNT 115 x10^3/uL (140-400); RED BLOOD COUNT 4.52 x10^6/uL (4.30-5.70); WHITE BLOOD COUNT 7.7 x10^3/uL (4.0-11.0)
[2020-10-02 11:00] VITALS: BP 120/84
[2020-10-02] MEDS: metroNIDAZOLE 500 MG TABLET PO SCH ×2 (12:28→21:51)
[2020-10-02] MEDS: HYDROcodone/APAP 10/325 1 TAB TABLET PO PRN ×3 (12:29→21:58)
[2020-10-02 15:00] VITALS: BP 122/75
[2020-10-02] MEDS ORDERED: POTASSIUM CHLORIDE 20MEQ 100 ML IV SCH (15:30)
[2020-10-02] MEDS ORDERED: POTASSIUM CHLORIDE 20 MEQ TABLET.ER. PO ONE (17:00)
[2020-10-02 19:00] VITALS: BP 122/89
[2020-10-02 22:41] VITALS: BP 147/98
[2020-10-03] MEDS: IV NORMAL SALINE 1000ML BAG 1,000 ML IV SCH ×3 (01:12→20:27)
[2020-10-03 03:00] VITALS: BP 100/56
[2020-10-03 04:32] LABS: BASO # 0.1 x10^3/uL (0.0-0.2); BASO % 1 % (0-3); EOS # 0.3 x10^3/uL (0.0-0.7); EOS % 6 % (0-3); HEMATOCRIT 38.3 % (39.0-53.0); HEMOGLOBIN 13.5 g/dL (13.0-17.5); LYMPH # 0.9 x10^3/uL (1.0-4.8); LYMPH % 15 % (24-48); MEAN CORPUSCULAR HEMOGLOBIN 34 pg (25-35); MEAN CORPUSCULAR HGB CONC 35 g/dL (31-37); MEAN CORPUSCULAR VOLUME 97 fL (79-100); MONO % 18 % (0-9); NEUT # 3.5 x10^3/uL (1.8-7.7); NEUT % 61 % (31-73); PLATELET COUNT 107 x10^3/uL (140-400); RED BLOOD COUNT 3.96 x10^6/uL (4.30-5.70); RED CELL DISTRIBUTION WIDTH 14.4 % (11.5-14.5); WHITE BLOOD COUNT 5.8 x10^3/uL (4.0-11.0)
[2020-10-03 04:44] LABS: CALCIUM 8.4 mg/dL (8.5-10.1); CREATININE 0.7 mg/dL (0.7-1.3); POTASSIUM 3.2 mmol/L (3.5-5.1)
[2020-10-03] MEDS: CEFEPIME HCL IV Push 2 GM VIAL. IVP SCH (06:16)
[2020-10-03 07:00] VITALS: BP 99/58
[2020-10-03] MEDS: HYDROcodone/APAP 10/325 1 TAB TABLET PO PRN ×4 (07:46→22:53)
[2020-10-03] MEDS: metroNIDAZOLE 500 MG TABLET PO SCH (07:48)
[2020-10-03] MEDS: DOXYCYCLINE HYCLATE 100 MG TABLET PO SCH ×2 (07:48→20:26)
[2020-10-03] MEDS: ALLOPURINOL 300 MG TABLET. PO SCH (07:49)
[2020-10-03] MEDS: MULTIVITAMIN with MINERAL TABLET. PO SCH (07:49)
[2020-10-03] MEDS: chlordiazePOXIDE HCL 25 MG CAPSULE PO SCH ×2 (07:49→20:26)
[2020-10-03] MEDS: THIAMINE 100 MG TABLET. PO SCH (07:49)
[2020-10-03] MEDS: ASPIRIN ENTERIC COATED 81 MG TABLET.DR. PO SCH (07:49)
[2020-10-03] MEDS: TRIAMTERENE/HCTZ 37.5/25MG TABLET. PO SCH (07:50)
[2020-10-03] MEDS: ATENOLOL 50 MG TABLET. PO SCH (07:53)
--- NOTE | 2020-10-03 09:14 | PDOC ---
Infectious Disease Note Subjective: Subjective Patient feels better today no more diarrhea Denies any symptoms Denies cough shortness of breath nausea vomiting hematochezia or melena or symptoms Vital Signs: Vital Signs Vital Signs Date Time Temp Pulse Resp B/P (MAP) Pulse Ox O2 Delivery O2 Flow Rate FiO2 10/03/20 07:53 93 113/80 10/03/20 07:46 19 95 Room Air 10/03/20 07:00 99.0 99.0 Physical Exam: PHYSICAL EXAM sitting bedside chair Medications: Inpatient Meds: Medications reviewed. Labs: Lab Laboratory Tests Test 10/02/20 10:10 10/03/20 04:00 White Blood Count 7.7 x10^3/uL (4.0-11.0) 5.8 x10^3/uL (4.0-11.0) Red Blood Count 4.52 x10^6/uL (4.30-5.70) 3.96 x10^6/uL (4.30-5.70) Hemoglobin 15.5 g/dL (13.0-17.5) 13.5 g/dL (13.0-17.5) Hematocrit 43.6 % (39.0-53.0) 38.3 % (39.0-53.0) Mean Corpuscular Volume 97 fL (79-100) 97 fL (79-100) Mean Corpuscular Hemoglobin 34 pg (25-35) 34 pg (25-35) Mean Corpuscular Hemoglobin Concent 36 g/dL (31-37) 35 g/dL (31-37) Red Cell Distribution Width 14.0 % (11.5-14.5) 14.4 % (11.5-14.5) Platelet Count 115 x10^3/uL (140-400) 107 x10^3/uL (140-400) Neutrophils (%) (Auto) 73 % (31-73) 61 % (31-73) Lymphocytes (%) (Auto) 9 % (24-48) 15 % (24-48) Monocytes (%) (Auto) 17 % (0-9) 18 % (0-9) Eosinophils (%) (Auto) 2 % (0-3) 6 % (0-3) Basophils (%) (Auto) 1 % (0-3) 1 % (0-3) Neutrophils # (Auto) 5.6 x10^3/uL (1.8-7.7) 3.5 x10^3/uL (1.8-7.7) Lymphocytes # (Auto) 0.7 x10^3/uL (1.0-4.8) 0.9 x10^3/uL (1.0-4.8) Monocytes # (Auto) 1.3 x10^3/uL (0.0-1.1) 1.0 x10^3/uL (0.0-1.1) Eosinophils # (Auto) 0.1 x10^3/uL (0.0-0.7) 0.3 x10^3/uL (0.0-0.7) Basophils # (Auto) 0.1 x10^3/uL (0.0-0.2) 0.1 x10^3/uL (0.0-0.2) Sodium Level 138 mmol/L (136-145) Potassium Level 3.2 mmol/L (3.5-5.1) Chloride Level 103 mmol/L (98-107) Carbon Dioxide Level 27 mmol/L (21-32) Anion Gap 8 (6-14) Blood Urea Nitrogen 14 mg/dL (8-26) Creatinine 0.7 mg/dL (0.7-1.3) Estimated GFR (Cockcroft-Gault) 122.0 Glucose Level 122 mg/dL (70-99) Calcium Level 8.4 mg/dL (8.5-10.1) Objective: Assessment: 1. Fever. Improving 2. Leukopenia and bandemia. Leucopenia resolved 3. Chronic myelogenous leukemia, on Gleevec. 4. History of alcohol dependence. 5. Hepatic steatosis with abnormal LFTs. 6. Thrombocytopenia. 7. Coronary artery disease status post recent cardiac catheterization with moderate coronary stent with moderate ischemic changes, stable LV function. 6. Abdominal pain and diarrhea 7. 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 8. CT Abn Lt Pyelo changes, ua neg, no symptoms 9. lactic acidosis improved Plan: Plan of Care DC daptomycin. ,cefepime, Flagyl augmentin cont doxycycline Ehrlichia serologies not available ; order cancelled by administration CT abdomen and pelvis without contrast. noted BC remain neg so far Follow up labs and cultures. Continue supportive care. PHI JONES MD Oct 03, 2020 09:14
--- NOTE | 2020-10-03 10:33 | PDOC ---
PROGRESS NOTES Date of Service: DATE: 10/03/20 TIME: 10:31 Chief Complaint Chief Complaint IMPRESSION CT of the abdomen shows acute sigmoid diverticulitis. history of CML. Diverticulitis, acute sepsis alcohol withdrawal leukopenia, history of CML. 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 thrombocytopenia, elevated troponin, hypokalemia. PLAN admitted. consult Hematology/Oncology, Cardiology, and Infectious Disease. IV antibiotics, IV fluids, home meds. DVT prophylaxis. Full code. Trend labs. Replace potassium. Long-term prognosis is guarded. History of Present Illness History of Present Illness CHIEF COMPLAINT: Tremors. HISTORY OF PRESENT ILLNESS: The patient is a pleasant 44-year-old male who drinks a lot of beer and he presented with tremors. It seems like he may have alcohol withdrawal, but he also meets sepsis criteria. I suspect this is a combination of alcohol withdrawal and sepsis. He spiked a fever of 103. He had a COVID test yesterday, which was negative, but PCR is still pending. He was out in the heat where it was over 100 degrees. He was not eating or drinking much. He apparently had a heart cath 5 days ago. I do not think any stents were placed. I discussed the case with the ER physician. We are going to admit the patient and consult Cardiology, Infectious Disease and Hematology/Oncology as the patient has a history of CML. PAST MEDICAL HISTORY: CML, recent cardiac cath with no stents, alcoholism, history of alcohol withdrawal. ALLERGIES: CELEBREX. FAMILY HISTORY: Hypertension. SOCIAL HISTORY: He drinks. I think he quit smoking and he is trying to quit drinking. MEDICATIONS: Reviewed. Please refer to the MRAD. REVIEW OF SYSTEMS: GENERAL: No history of weight change, weakness. SKIN: No bruising, hair changes or rashes. EYES: No blurred, double or loss of vision. NOSE AND THROAT: No history of nosebleeds, hoarseness or sore throat. HEART: No history of palpitations, chest pain or shortness of breath on exertion. LUNGS: Denies cough, hemoptysis, wheezing or shortness of breath. GASTROINTESTINAL: Denies changes in appetite, nausea, vomiting, diarrhea or constipation. GENITOURINARY: No history of frequency, urgency, hesitancy or nocturia. NEUROLOGIC: Denies history of numbness, tingling or weakness. PSYCHIATRIC: No history of panic, anxiety or depression. ENDOCRINE: No history of heat or cold intolerance, polyuria or polydipsia. EXTREMITIES: Denies muscle weakness, joint pain, pain on walking or stiffness. 10-02 Diverticulitis, sepsis alcohol withdrawal leukopenia, thrombocytopenia, elevated troponin, hypokalemia. The patient will be admitted. We will consult Hematology/Oncology, Cardiology, and Infectious Disease. IV antibiotics, IV fluids, home meds. DVT prophylaxis. Full code. Trend labs. Replace potassium. Long-term prognosis is guarded. Cont daptomycin.,doxycycline.,cefepime. Start Flagyl Ehrlichia PCR order canceled by administration CT abdomen and pelvis without contrast. noted 10-03 Diverticulitis, sepsis alcohol withdrawal leukopenia, thrombocytopenia, elevated troponin, hypokalemia. The patient will be admitted. We will consult Hematology/Oncology, Cardiology, and Infectious Disease. IV antibiotics, IV fluids, home meds. DVT prophylaxis. Full code. Trend labs. Replace potassium. Long-term prognosis is guarded. Cont daptomycin.,doxycycline.,cefepime. Start Flagyl Ehrlichia PCR order canceled by administration CT abdomen and pelvis without contrast. noted 38 MIN PT EXAM, CHART REVIEW, > 50% OF time spent with exam, chart review, pt care coordination Vitals Vitals Vital Signs Date Time Temp Pulse Resp B/P (MAP) Pulse Ox O2 Delivery O2 Flow Rate FiO2 10/03/20 07:53 93 113/80 10/03/20 07:46 19 95 Room Air 10/03/20 07:00 99.0 99.0 Physical Exam Physical Exam sitting bedside chair General: Alert, Oriented X3, Cooperative, No acute distress, Other (tremors) Heart: Regular rate, Normal S1, Normal S2 Lungs: Clear Abdomen: Soft Extremities: No edema Labs LABS Laboratory Tests Test 10/03/20 04:00 White Blood Count 5.8 x10^3/uL (4.0-11.0) Red Blood Count 3.96 x10^6/uL (4.30-5.70) Hemoglobin 13.5 g/dL (13.0-17.5) Hematocrit 38.3 % (39.0-53.0) Mean Corpuscular Volume 97 fL (79-100) Mean Corpuscular Hemoglobin 34 pg (25-35) Mean Corpuscular Hemoglobin Concent 35 g/dL (31-37) Red Cell Distribution Width 14.4 % (11.5-14.5) Platelet Count 107 x10^3/uL (140-400) Neutrophils (%) (Auto) 61 % (31-73) Lymphocytes (%) (Auto) 15 % (24-48) Monocytes (%) (Auto) 18 % (0-9) Eosinophils (%) (Auto) 6 % (0-3) Basophils (%) (Auto) 1 % (0-3) Neutrophils # (Auto) 3.5 x10^3/uL (1.8-7.7) Lymphocytes # (Auto) 0.9 x10^3/uL (1.0-4.8) Monocytes # (Auto) 1.0 x10^3/uL (0.0-1.1) Eosinophils # (Auto) 0.3 x10^3/uL (0.0-0.7) Basophils # (Auto) 0.1 x10^3/uL (0.0-0.2) Sodium Level 138 mmol/L (136-145) Potassium Level 3.2 mmol/L (3.5-5.1) Chloride Level 103 mmol/L (98-107) Carbon Dioxide Level 27 mmol/L (21-32) Anion Gap 8 (6-14) Blood Urea Nitrogen 14 mg/dL (8-26) Creatinine 0.7 mg/dL (0.7-1.3) Estimated GFR (Cockcroft-Gault) 122.0 Glucose Level 122 mg/dL (70-99) Calcium Level 8.4 mg/dL (8.5-10.1) Assessment and Plan Assessmemt and Plan Problems Medical Problems: (1) Fever, unknown origin Status: Acute (2) Leukopenia Status: Acute Comment Review of Relevant I have reviewed the following items rosalie (where applicable) has been applied. Labs Laboratory Tests Test 10/01/20 17:00 10/01/20 23:31 10/02/20 03:00 10/02/20 05:50 Stool Campylobacter PCR Negative (NEGATIVE) Stool E. coli Shiga Toxins (PCR) Negative (NEGATIVE) Stool Salmonella PCR Negative (NEGATIVE) Stool Shigella PCR Negative (NEGATIVE) Clostridium difficile Toxin (PCR) Negative (NEGATIVE) Lactic Acid Level 2.3 mmol/L (0.4-2.0) 0.8 mmol/L (0.4-2.0) Sodium Level 136 mmol/L (136-145) Potassium Level 3.2 mmol/L (3.5-5.1) Chloride Level 101 mmol/L (98-107) Carbon Dioxide Level 25 mmol/L (21-32) Anion Gap 10 (6-14) Blood Urea Nitrogen 9 mg/dL (8-26) Creatinine 0.7 mg/dL (0.7-1.3) Estimated GFR (Cockcroft-Gault) 122.0 BUN/Creatinine Ratio 13 (6-20) Glucose Level 91 mg/dL (70-99) Calcium Level 8.1 mg/dL (8.5-10.1) Total Bilirubin 1.2 mg/dL (0.2-1.0) Aspartate Amino Transf (AST/SGOT) 78 U/L (15-37) Alanine Aminotransferase (ALT/SGPT) 83 U/L (16-63) Alkaline Phosphatase 59 U/L (46-116) Total Protein 5.3 g/dL (6.4-8.2) Albumin 2.8 g/dL (3.4-5.0) Albumin/Globulin Ratio 1.1 (1.0-1.7) Test 10/02/20 10:10 10/03/20 04:00 White Blood Count 7.7 x10^3/uL (4.0-11.0) 5.8 x10^3/uL (4.0-11.0) Red Blood Count 4.52 x10^6/uL (4.30-5.70) 3.96 x10^6/uL (4.30-5.70) Hemoglobin 15.5 g/dL (13.0-17.5) 13.5 g/dL (13.0-17.5) Hematocrit 43.6 % (39.0-53.0) 38.3 % (39.0-53.0) Mean Corpuscular Volume 97 fL (79-100) 97 fL (79-100) Mean Corpuscular Hemoglobin 34 pg (25-35) 34 pg (25-35) Mean Corpuscular Hemoglobin Concent 36 g/dL (31-37) 35 g/dL (31-37) Red Cell Distribution Width 14.0 % (11.5-14.5) 14.4 % (11.5-14.5) Platelet Count 115 x10^3/uL (140-400) 107 x10^3/uL (140-400) Neutrophils (%) (Auto) 73 % (31-73) 61 % (31-73) Lymphocytes (%) (Auto) 9 % (24-48) 15 % (24-48) Monocytes (%) (Auto) 17 % (0-9) 18 % (0-9) Eosinophils (%) (Auto) 2 % (0-3) 6 % (0-3) Basophils (%) (Auto) 1 % (0-3) 1 % (0-3) Neutrophils # (Auto) 5.6 x10^3/uL (1.8-7.7) 3.5 x10^3/uL (1.8-7.7) Lymphocytes # (Auto) 0.7 x10^3/uL (1.0-4.8) 0.9 x10^3/uL (1.0-4.8) Monocytes # (Auto) 1.3 x10^3/uL (0.0-1.1) 1.0 x10^3/uL (0.0-1.1) Eosinophils # (Auto) 0.1 x10^3/uL (0.0-0.7) 0.3 x10^3/uL (0.0-0.7) Basophils # (Auto) 0.1 x10^3/uL (0.0-0.2) 0.1 x10^3/uL (0.0-0.2) Sodium Level 138 mmol/L (136-145) Potassium Level 3.2 mmol/L (3.5-5.1) Chloride Level 103 mmol/L (98-107) Carbon Dioxide Level 27 mmol/L (21-32) Anion Gap 8 (6-14) Blood Urea Nitrogen 14 mg/dL (8-26) Creatinine 0.7 mg/dL (0.7-1.3) Estimated GFR (Cockcroft-Gault) 122.0 Glucose Level 122 mg/dL (70-99) Calcium Level 8.4 mg/dL (8.5-10.1) Laboratory Tests Test 10/03/20 04:00 White Blood Count 5.8 x10^3/uL (4.0-11.0) Red Blood Count 3.96 x10^6/uL (4.30-5.70) Hemoglobin 13.5 g/dL (13.0-17.5) Hematocrit 38.3 % (39.0-53.0) Mean Corpuscular Volume 97 fL (79-100) Mean Corpuscular Hemoglobin 34 pg (25-35) Mean Corpuscular Hemoglobin Concent 35 g/dL (31-37) Red Cell Distribution Width 14.4 % (11.5-14.5) Platelet Count 107 x10^3/uL (140-400) Neutrophils (%) (Auto) 61 % (31-73) Lymphocytes (%) (Auto) 15 % (24-48) Monocytes (%) (Auto) 18 % (0-9) Eosinophils (%) (Auto) 6 % (0-3) Basophils (%) (Auto) 1 % (0-3) Neutrophils # (Auto) 3.5 x10^3/uL (1.8-7.7) Lymphocytes # (Auto) 0.9 x10^3/uL (1.0-4.8) Monocytes # (Auto) 1.0 x10^3/uL (0.0-1.1) Eosinophils # (Auto) 0.3 x10^3/uL (0.0-0.7) Basophils # (Auto) 0.1 x10^3/uL (0.0-0.2) Sodium Level 138 mmol/L (136-145) Potassium Level 3.2 mmol/L (3.5-5.1) Chloride Level 103 mmol/L (98-107) Carbon Dioxide Level 27 mmol/L (21-32) Anion Gap 8 (6-14) Blood Urea Nitrogen 14 mg/dL (8-26) Creatinine 0.7 mg/dL (0.7-1.3) Estimated GFR (Cockcroft-Gault) 122.0 Glucose Level 122 mg/dL (70-99) Calcium Level 8.4 mg/dL (8.5-10.1) Microbiology 10/01/20 Blood Culture - Preliminary, Resulted NO GROWTH AFTER 2 DAYS Medications Current Medications Sodium Chloride 1,000 ml @ 1,000 mls/hr 1X ONCE IV Last administered on 09/30/20at 19:56; Start 09/30/20 at 20:00; Stop 09/30/20 at 20:59; Status DC Sodium Chloride 1,000 ml @ 1,000 mls/hr 1X ONCE IV Last administered on 09/30/20at 19:56; Start 09/30/20 at 20:00; Stop 09/30/20 at 20:59; Status DC Acetaminophen (Tylenol) 1,000 mg 1X ONCE PO Last administered on 09/30/20at 21:31; Start 09/30/20 at 21:30; Stop 09/30/20 at 21:31; Status DC Cefepime HCl (Maxipime) 1 gm 1X ONCE IVP Last administered on 09/30/20at 21:31; Start 09/30/20 at 21:30; Stop 09/30/20 at 21:31; Status DC Vancomycin HCl 2 gm/Sodium Chloride 500 ml @ 250 mls/hr 1X ONCE IV Last administered on 09/30/20at 21:31; Start 09/30/20 at 21:30; Stop 09/30/20 at 23:29; Status DC Vancomycin HCl (Vanco Per Pharmacy) 1 each PRN DAILY PRN MC SEE COMMENTS Last administered on 10/01/20at 03:08; Start 09/30/20 at 21:15; Stop 10/01/20 at 09:04; Status DC Ondansetron HCl (Zofran) 4 mg PRN Q8HRS PRN IV NAUSEA/VOMITING 1ST CHOICE; Start 09/30/20 at 21:45; Stop 10/01/20 at 21:44; Status DC Fentanyl Citrate (Fentanyl 2ml Vial) 50 mcg PRN Q1HR PRN IV SEVERE PAIN 7-10 Last administered on 10/01/20at 19:22; Start 09/30/20 at 21:45; Stop 10/01/20 at 21:44; Status DC Sodium Chloride 1,000 ml @ 100 mls/hr Q10H IV Last administered on 10/01/20at 18:00; Start 09/30/20 at 22:00; Stop 10/01/20 at 21:59; Status DC Potassium Chloride (Klor-Con) 40 meq 1X ONCE PO Last administered on 10/01/20at 02:57; Start 10/01/20 at 03:00; Stop 10/01/20 at 03:02; Status DC Potassium Chloride (Klor-Con) 40 meq 1X ONCE PO Last administered on 10/01/20at 08:09; Start 10/01/20 at 08:00; Stop 10/01/20 at 08:01; Status DC Potassium Chloride/Water 100 ml @ 100 mls/hr Q1H IV Last administered on 10/01/20at 10:29; Start 10/01/20 at 03:00; Stop 10/01/20 at 06:59; Status DC Vancomycin HCl 1.5 gm/Sodium Chloride 500 ml @ 250 mls/hr Q8HRS IV Last administered on 10/01/20at 06:11; Start 10/01/20 at 06:00; Stop 10/01/20 at 09:00; Status DC Vancomycin HCl (Vancomycin Trough Level) 1 each 1X ONCE MC ; Start 10/01/20 at 21:30; Stop 10/01/20 at 21:31; Status Cancel Cefepime HCl (Maxipime) 2 gm Q8HRS IVP Last administered on 10/03/20at 06:16; Start 10/01/20 at 14:00 Doxycycline Hyclate (Vibra-Tab) 100 mg BID PO Last administered on 10/03/20at 07:48; Start 10/01/20 at 09:00 Daptomycin 530 mg/ Sodium Chloride 50 ml @ 100 mls/hr Q24H IV Last administered on 10/02/20at 10:44; Start 10/01/20 at 10:00 Chlordiazepoxide (Librium) 50 mg PRN Q1HR PRN PO For CIWA 8-14 Last administered on 10/01/20at 13:00; Start 10/01/20 at 11:45 Chlordiazepoxide (Librium) 100 mg PRN Q1HR PRN PO For CIWA 15 or greater; Start 10/01/20 at 11:45 Lorazepam (Ativan Inj) 2 mg PRN Q1HR PRN IV For CIWA 8-14; Start 10/01/20 at 11:45 Lorazepam (Ativan Inj) 4 mg PRN Q1HR PRN IV For CIWA 15 or greater; Start 10/01/20 at 11:45 Haloperidol Lactate (Haldol Inj) 5 mg PRN Q4HRS PRN IVP Hallucinatns,Confusn,Delirium; Start 10/01/20 at 11:45 Diphenhydramine HCl (Benadryl) 25 mg PRN Q15MIN PRN IVP EPS symptoms 2'Haldol admin; Start 10/01/20 at 11:45 Clonidine HCl (Catapres) 0.1 mg PRN Q1HR PRN PO SBP > 180 or DBP > 100, MRX3; Start 10/01/20 at 11:45 Acetaminophen (Tylenol) 650 mg PRN Q6HRS PRN PO MILD PAIN / TEMP > 100.3'F Last administered on 10/01/20at 23:25; Start 10/01/20 at 11:45 Allopurinol (Zyloprim) 300 mg DAILY PO Last administered on 10/03/20at 07:49; Start 10/01/20 at 13:00 Aspirin (Ecotrin) 81 mg DAILY PO Last administered on 10/03/20at 07:49; Start 10/01/20 at 13:00 Atenolol (Tenormin) 50 mg DAILY PO Last administered on 10/03/20at 07:53; Start 10/01/20 at 13:00 Chlordiazepoxide (Librium) 50 mg BID PO Last administered on 10/03/20at 07:49; Start 10/01/20 at 21:00 Chlordiazepoxide (Librium) 50 mg HS PO ; Start 10/01/20 at 21:00; Status UNV Acetaminophen/ Hydrocodone Bitart (Lortab 10/325) 1 tab PRN Q6HRS PRN PO MODERATE PAIN 4-6 Last administered on 10/01/20at 23:28; Start 10/01/20 at 12:15 Multivitamins (Thera M Plus) 1 tab DAILY PO Last administered on 10/03/20at 07:49; Start 10/01/20 at 13:00 Thiamine Mononitrate (Vitamin B-1) 100 mg DAILY PO Last administered on 10/03/20at 07:49; Start 10/01/20 at 13:00 Triamterene/HCTZ (Maxzide 37.5/ 25mg) 1 tab DAILY PO Last administered on 10/03/20at 07:50; Start 10/01/20 at 13:00 Non-Formulary Medication (Imatinib Mesylate (Gleevec)) 400 mg HS PO Last administered on 10/02/20at 21:52; Start 10/01/20 at 21:00 Acetaminophen/ Hydrocodone Bitart (Lortab 10/325) 2 tab PRN Q6HRS PRN PO SEVERE PAIN 7-10 Last administered on 10/02/20at 06:21; Start 10/01/20 at 12:15; Stop 10/02/20 at 11:03; Status DC Lactobacillus Rhamnosus (Culturelle) 1 cap BID PO Last administered on 10/02/20at 09:04; Start 10/01/20 at 21:00; Stop 10/02/20 at 14:19; Status DC Sodium Chloride 1,000 ml @ 100 mls/hr Q10H IV Last administered on 10/03/20at 01:12; Start 10/02/20 at 05:30 Metronidazole (Flagyl) 500 mg Q12HR PO Last administered on 10/03/20at 07:48; Start 10/02/20 at 11:30 Acetaminophen/ Hydrocodone Bitart (Lortab 10/325) 2 tab PRN Q4HRS PRN PO SEVERE PAIN 7-10 Last administered on 10/03/20at 07:46; Start 10/02/20 at 11:00 Potassium Chloride/Water 100 ml @ 50 mls/hr Q2H IV Last administered on 10/02/20at 15:22; Start 10/02/20 at 15:30; Stop 10/02/20 at 16:38; Status DC Potassium Chloride (Klor-Con) 40 meq 1X ONCE PO Last administered on 10/02/20at 17:37; Start 10/02/20 at 17:00; Stop 10/02/20 at 17:01; Status DC Active Scripts Active Thera-M Tablet (Multivits,Ca,Minerals/Iron/Fa) 1 Each Tablet 1 Tab PO DAILY 30 Days Vitamin B-1 (Thiamine Mononitrate) 100 Mg Tablet 100 Mg PO DAILY 30 Days Reported Chlordiazepoxide Hcl 25 Mg Capsule 50 Mg PO DAILY Aspirin Ec (Aspirin) 81 Mg Tablet.dr 1 Tab PO DAILY Triamterene-Hctz 37.5-25 Mg Tb (Triamterene/Hydrochlorothiazid) 1 Each Tablet 1 Tab PO DAILY Atenolol 50 Mg Tablet 50 Mg PO DAILY Gleevec (Imatinib Mesylate) 400 Mg Tablet 400 Mg PO HS Allopurinol 300 Mg Tablet 1 Tab PO DAILY Hydrocodone-Apap 10-325 (Hydrocodone Bit/Acetaminophen) 1 Each Tablet 1-2 Tab PO PRN Q6HRS PRN Chlordiazepoxide Hcl 25 Mg Capsule 50 Mg PO HS Vitals/I & O Vital Sign - Last 24 Hours 10/02/20 10/02/20 10/02/20 10/02/20 11:00 12:29 13:00 15:00 Temp 98.4 98.1 98.4 98.1 Pulse 96 94 Resp 18 17 18 18 B/P (MAP) 120/84 (96) 122/75 (91) Pulse Ox 99 99 97 97 O2 Delivery Room Air Room Air Room Air Room Air 10/02/20 10/02/20 10/02/20 10/02/20 17:39 18:10 19:00 19:30 Temp 97.4 97.4 Pulse 89 Resp 18 18 18 B/P (MAP) 122/89 (100) Pulse Ox 97 97 99 O2 Delivery Room Air Room Air Room Air Room Air 10/02/20 10/02/20 10/02/20 10/03/20 21:58 22:30 22:41 03:00 Temp 97.5 97.7 97.5 97.7 Pulse 98 100 Resp 18 18 B/P (MAP) 147/98 (114) 100/56 (71) Pulse Ox 99 97 97 95 O2 Delivery Room Air Room Air Room Air Room Air 10/03/20 10/03/20 10/03/20 07:00 07:46 07:53 Temp 99.0 99.0 Pulse 103 93 Resp 18 19 B/P (MAP) 99/58 (72) 113/80 Pulse Ox 95 95 O2 Delivery Room Air Room Air Intake and Output 10/02/20 10/02/20 10/03/20 15:00 23:00 07:00 Intake Total 300 ml 300 ml 1000 ml Output Total 700 ml Balance 300 ml 300 ml 300 ml Justicifation of Admission Dx: Justifications for Admission: Justification of Admission Dx: Yes Sepsis: Bacteremia ZIGGY NUÑEZ MD Oct 03, 2020 10:33
[2020-10-03] MEDS: DAPTOmycin (GENERIC) IVPB 530 MG in IV NORMAL SALINE 50ML 50 ML IV SCH (10:54)
[2020-10-03 11:00] VITALS: BP 111/66
--- NOTE | 2020-10-03 11:59 | NUR ---
SW following. Discussed with RN, pt from home with , room air, regular diet, COVID-19 negative. ID following - pt on IV abx. Oncology consult pending. ANTHONY consulted for daily ETOH use. AIDAN will continue to follow. Addendum: 10/03/20 at 1529 by GHAZAL BERMUDEZ Benjy PHILIPPE) met with pt, pt declining any services or need for help at discharge. Provided with resource.
[2020-10-03] MEDS ORDERED: POTASSIUM CHLORIDE 20 MEQ TABLET.ER. PO ONE (13:15)
--- NOTE | 2020-10-03 13:40 | PDOC ---
CARDIO Progress Notes Date and Time Date of Service 10/03/2020 Time of Evaluation 1300 Subjective Subjective: No Chest Pain, No shortness of breath, No Palpitations Vitals Vitals Vital Signs Date Time Temp Pulse Resp B/P (MAP) Pulse Ox O2 Delivery O2 Flow Rate FiO2 10/03/20 11:00 98.2 76 18 111/66 (81) 100 Room Air 98.2 Weight Weight [ ] Input and Output Intake and Output Intake and Output 10/03/20 07:00 Intake Total 1600 ml Output Total 700 ml Balance 900 ml Intake Oral 600 ml IV Total 1000 ml Output Urine Total 700 ml Laboratory Labs Laboratory Tests Test 10/03/20 04:00 White Blood Count 5.8 x10^3/uL (4.0-11.0) Red Blood Count 3.96 x10^6/uL (4.30-5.70) Hemoglobin 13.5 g/dL (13.0-17.5) Hematocrit 38.3 % (39.0-53.0) Mean Corpuscular Volume 97 fL (79-100) Mean Corpuscular Hemoglobin 34 pg (25-35) Mean Corpuscular Hemoglobin Concent 35 g/dL (31-37) Red Cell Distribution Width 14.4 % (11.5-14.5) Platelet Count 107 x10^3/uL (140-400) Neutrophils (%) (Auto) 61 % (31-73) Lymphocytes (%) (Auto) 15 % (24-48) Monocytes (%) (Auto) 18 % (0-9) Eosinophils (%) (Auto) 6 % (0-3) Basophils (%) (Auto) 1 % (0-3) Neutrophils # (Auto) 3.5 x10^3/uL (1.8-7.7) Lymphocytes # (Auto) 0.9 x10^3/uL (1.0-4.8) Monocytes # (Auto) 1.0 x10^3/uL (0.0-1.1) Eosinophils # (Auto) 0.3 x10^3/uL (0.0-0.7) Basophils # (Auto) 0.1 x10^3/uL (0.0-0.2) Sodium Level 138 mmol/L (136-145) Potassium Level 3.2 mmol/L (3.5-5.1) Chloride Level 103 mmol/L (98-107) Carbon Dioxide Level 27 mmol/L (21-32) Anion Gap 8 (6-14) Blood Urea Nitrogen 14 mg/dL (8-26) Creatinine 0.7 mg/dL (0.7-1.3) Estimated GFR (Cockcroft-Gault) 122.0 Glucose Level 122 mg/dL (70-99) Calcium Level 8.4 mg/dL (8.5-10.1) Microbiology Micro Microbiology 10/01/20 Blood Culture - Preliminary, Resulted NO GROWTH AFTER 2 DAYS Physical Exam HEENT: Neck Supple W Full Motion Chest: Symmetric LUNGS: Clear to Auscultation Heart: S1S2, RRR (SR) Abdomen: Soft N/T Extremities: No Edema, No Calf Tenderness Neurology: alert, oriented, follow commands Assessment Assessment 1. Mild troponin elevation: peaked at 0.1, no cardiac symptoms. 2. CAD: recent cath 09/26/20 showed three vessel CAD that was managed medically. This seems to be stable clinically. 2D echo 08/01 showed EF 50-55%. 3. HTN: controlled 4. Abdominal pain/fever: ID following 5. CML: continue current treatment per Hem/Onc 6. Hepatic steatosis with hx of alcohol misuse 7. Hypokalemia Recommendations Continue current secondary prevention measures. Follow up as scheduled He has no intention of stopping ETOH intake, consume about 6-12 beers daily. 'Would not put on statin if he continues. check FLP Replace K. Check Mg and replace if if low Justicifation of Admission Dx: Justifications for Admission: Justification of Admission Dx: Yes Sepsis: Bacteremia [employer] Oct 03, 2020 13:40
[2020-10-03 14:11] LABS: CHOLESTEROL/HDL RATIO 10.3
[2020-10-03 15:00] VITALS: BP 115/60
[2020-10-03 19:00] VITALS: BP 134/96
[2020-10-03] MEDS: AMOXICILLIN/K CLAV 875/125MG TABLET. PO SCH (20:27)
[2020-10-03 22:36] VITALS: BP 131/93
[2020-10-04 03:00] VITALS: BP 139/90
[2020-10-04] MEDS: HYDROcodone/APAP 10/325 1 TAB TABLET PO PRN (05:54)
[2020-10-04 07:00] VITALS: BP 142/94
--- NOTE | 2020-10-04 08:19 | PDOC ---
Infectious Disease Note Subjective: Subjective Patient feels better today Denies fever, chills cough shortness of breath nausea vomiting, diarrhea hematochezia or melena or symptoms Vital Signs: Vital Signs Vital Signs Date Time Temp Pulse Resp B/P (MAP) Pulse Ox O2 Delivery O2 Flow Rate FiO2 10/04/20 07:00 97.5 92 16 142/94 (110) 98 Room Air 97.5 Physical Exam: PHYSICAL EXAM sitting bedside chair Medications: Inpatient Meds: Medications reviewed. Objective: Assessment: 1. Fever. Improving 2. Leukopenia and bandemia. Leucopenia resolved 3. Chronic myelogenous leukemia, on Gleevec. 4. History of alcohol dependence. 5. Hepatic steatosis with abnormal LFTs. 6. Thrombocytopenia. 7. Coronary artery disease status post recent cardiac catheterization with moderate coronary stent with moderate ischemic changes, stable LV function. 6. Abdominal pain and diarrhea 7. 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 8. CT Abn Lt Pyelo changes, ua neg, no symptoms 9. lactic acidosis improved Plan: Plan of Care Patient can be discharged home on Augmentin and doxycycline for 7 days Ehrlichia serologies not available ; order cancelled by administration C diff neg,enteric panel neg CT abdomen and pelvis without contrast. noted BC remain neg so far Continue supportive care. PHI JONES MD Oct 04, 2020 08:19
[2020-10-04] MEDS: chlordiazePOXIDE HCL 25 MG CAPSULE PO SCH (09:10)
[2020-10-04] MEDS: TRIAMTERENE/HCTZ 37.5/25MG TABLET. PO SCH (09:10)
[2020-10-04] MEDS: IV NORMAL SALINE 1000ML BAG 1,000 ML IV SCH (09:10)
[2020-10-04] MEDS: MULTIVITAMIN with MINERAL TABLET. PO SCH (09:11)
[2020-10-04] MEDS: DOXYCYCLINE HYCLATE 100 MG TABLET PO SCH (09:11)
[2020-10-04] MEDS: THIAMINE 100 MG TABLET. PO SCH (09:11)
[2020-10-04] MEDS: ALLOPURINOL 300 MG TABLET. PO SCH (09:11)
[2020-10-04] MEDS: ASPIRIN ENTERIC COATED 81 MG TABLET.DR. PO SCH (09:11)
[2020-10-04] MEDS: ATENOLOL 50 MG TABLET. PO SCH (09:11)
[2020-10-04] MEDS: AMOXICILLIN/K CLAV 875/125MG TABLET. PO SCH (09:11)
--- NOTE | 2020-10-04 09:38 | PDOC ---
PROGRESS NOTES Date of Service: DATE: 10/04/20 TIME: 09:45 Chief Complaint Chief Complaint IMPRESSION CT of the abdomen shows acute sigmoid diverticulitis. history of CML. Diverticulitis, acute sepsis alcohol withdrawal leukopenia, history of CML. 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 thrombocytopenia, elevated troponin, hypokalemia. PLAN admitted. consult Hematology/Oncology, Cardiology, and Infectious Disease. IV antibiotics, IV fluids, home meds. DVT prophylaxis. Full code. Trend labs. Replace potassium. Long-term prognosis is guarded. History of Present Illness History of Present Illness CHIEF COMPLAINT: Tremors. HISTORY OF PRESENT ILLNESS: The patient is a pleasant 44-year-old male who drinks a lot of beer and he presented with tremors. It seems like he may have alcohol withdrawal, but he also meets sepsis criteria. I suspect this is a combination of alcohol withdrawal and sepsis. He spiked a fever of 103. He had a COVID test yesterday, which was negative, but PCR is still pending. He was out in the heat where it was over 100 degrees. He was not eating or drinking much. He apparently had a heart cath 5 days ago. I do not think any stents were placed. I discussed the case with the ER physician. We are going to admit the patient and consult Cardiology, Infectious Disease and Hematology/Oncology as the patient has a history of CML. PAST MEDICAL HISTORY: CML, recent cardiac cath with no stents, alcoholism, history of alcohol withdrawal. ALLERGIES: CELEBREX. FAMILY HISTORY: Hypertension. SOCIAL HISTORY: He drinks. I think he quit smoking and he is trying to quit drinking. MEDICATIONS: Reviewed. Please refer to the MRAD. REVIEW OF SYSTEMS: GENERAL: No history of weight change, weakness. SKIN: No bruising, hair changes or rashes. EYES: No blurred, double or loss of vision. NOSE AND THROAT: No history of nosebleeds, hoarseness or sore throat. HEART: No history of palpitations, chest pain or shortness of breath on exertion. LUNGS: Denies cough, hemoptysis, wheezing or shortness of breath. GASTROINTESTINAL: Denies changes in appetite, nausea, vomiting, diarrhea or constipation. GENITOURINARY: No history of frequency, urgency, hesitancy or nocturia. NEUROLOGIC: Denies history of numbness, tingling or weakness. PSYCHIATRIC: No history of panic, anxiety or depression. ENDOCRINE: No history of heat or cold intolerance, polyuria or polydipsia. EXTREMITIES: Denies muscle weakness, joint pain, pain on walking or stiffness. 6- Diverticulitis, sepsis alcohol withdrawal leukopenia, thrombocytopenia, elevated troponin, hypokalemia. The patient will be admitted. We will consult Hematology/Oncology, Cardiology, and Infectious Disease. IV antibiotics, IV fluids, home meds. DVT prophylaxis. Full code. Trend labs. Replace potassium. Long-term prognosis is guarded. Cont daptomycin.,doxycycline.,cefepime. Start Flagyl Ehrlichia PCR order canceled by administration CT abdomen and pelvis without contrast. noted 10-03 Diverticulitis, sepsis alcohol withdrawal leukopenia, thrombocytopenia, elevated troponin, hypokalemia. The patient will be admitted. We will consult Hematology/Oncology, Cardiology, and Infectious Disease. IV antibiotics, IV fluids, home meds. DVT prophylaxis. Full code. Trend labs. Replace potassium. Long-term prognosis is guarded. Cont daptomycin.,doxycycline.,cefepime. Start Flagyl Ehrlichia PCR order canceled by administration CT abdomen and pelvis without contrast. noted 38 MIN PT EXAM, CHART REVIEW, > 50% OF time spent with exam, chart review, pt care coordination 10-04 Diverticulitis, sepsis alcohol withdrawal symptoms resolved leukopenia, thrombocytopenia, elevated troponin, hypokalemia. The patient will be admitted. We will consult Hematology/Oncology, Cardiology, and Infectious Disease. IV antibiotics, IV fluids, home meds. DVT prophylaxis. Full code. Trend labs. Replace potassium. Long-term prognosis is guarded. Cont daptomycin.,doxycycline.,cefepime. Start Flagyl Ehrlichia PCR order canceled by administration CT abdomen and pelvis without contrast. noted 33 MIN PT EXAM, CHART REVIEW d/c planning, > 50% OF time spent with exam, chart review, pt care coordination discharged home on Augmentin and doxycycline for 7 days Ehrlichia serologies not available ; order cancelled by administration C diff neg,enteric panel neg CT abdomen and pelvis without contrast. noted BC remain neg so far Vitals Vitals Vital Signs Date Time Temp Pulse Resp B/P (MAP) Pulse Ox O2 Delivery O2 Flow Rate FiO2 10/04/20 09:11 92 142/94 10/04/20 07:00 97.5 16 98 Room Air 97.5 Physical Exam Physical Exam sitting bedside chair General: Alert, Oriented X3, Cooperative, No acute distress, Other (tremors) Heart: Regular rate, Normal S1, Normal S2 Lungs: Clear Abdomen: Normal bowel sounds, Soft, No tenderness Extremities: No edema Assessment and Plan Assessmemt and Plan Problems Medical Problems: (1) Fever, unknown origin Status: Acute (2) Leukopenia Status: Acute Comment Review of Relevant I have reviewed the following items rosalie (where applicable) has been applied. Labs Laboratory Tests Test 10/02/20 10:10 10/03/20 04:00 White Blood Count 7.7 x10^3/uL (4.0-11.0) 5.8 x10^3/uL (4.0-11.0) Red Blood Count 4.52 x10^6/uL (4.30-5.70) 3.96 x10^6/uL (4.30-5.70) Hemoglobin 15.5 g/dL (13.0-17.5) 13.5 g/dL (13.0-17.5) Hematocrit 43.6 % (39.0-53.0) 38.3 % (39.0-53.0) Mean Corpuscular Volume 97 fL (79-100) 97 fL (79-100) Mean Corpuscular Hemoglobin 34 pg (25-35) 34 pg (25-35) Mean Corpuscular Hemoglobin Concent 36 g/dL (31-37) 35 g/dL (31-37) Red Cell Distribution Width 14.0 % (11.5-14.5) 14.4 % (11.5-14.5) Platelet Count 115 x10^3/uL (140-400) 107 x10^3/uL (140-400) Neutrophils (%) (Auto) 73 % (31-73) 61 % (31-73) Lymphocytes (%) (Auto) 9 % (24-48) 15 % (24-48) Monocytes (%) (Auto) 17 % (0-9) 18 % (0-9) Eosinophils (%) (Auto) 2 % (0-3) 6 % (0-3) Basophils (%) (Auto) 1 % (0-3) 1 % (0-3) Neutrophils # (Auto) 5.6 x10^3/uL (1.8-7.7) 3.5 x10^3/uL (1.8-7.7) Lymphocytes # (Auto) 0.7 x10^3/uL (1.0-4.8) 0.9 x10^3/uL (1.0-4.8) Monocytes # (Auto) 1.3 x10^3/uL (0.0-1.1) 1.0 x10^3/uL (0.0-1.1) Eosinophils # (Auto) 0.1 x10^3/uL (0.0-0.7) 0.3 x10^3/uL (0.0-0.7) Basophils # (Auto) 0.1 x10^3/uL (0.0-0.2) 0.1 x10^3/uL (0.0-0.2) Sodium Level 138 mmol/L (136-145) Potassium Level 3.2 mmol/L (3.5-5.1) Chloride Level 103 mmol/L (98-107) Carbon Dioxide Level 27 mmol/L (21-32) Anion Gap 8 (6-14) Blood Urea Nitrogen 14 mg/dL (8-26) Creatinine 0.7 mg/dL (0.7-1.3) Estimated GFR (Cockcroft-Gault) 122.0 Glucose Level 122 mg/dL (70-99) Calcium Level 8.4 mg/dL (8.5-10.1) Magnesium Level 2.0 mg/dL (1.8-2.4) Triglycerides Level 146 mg/dL (0-150) Cholesterol Level 103 mg/dL (0-200) LDL Cholesterol, Calculated 64 mg/dL (0-100) VLDL Cholesterol, Calculated 29 mg/dL (0-40) Non-HDL Cholesterol Calculated 93 mg/dL (0-129) HDL Cholesterol 10 mg/dL (40-60) Cholesterol/HDL Ratio 10.3 Microbiology 10/01/20 Blood Culture - Preliminary, Resulted NO GROWTH AFTER 3 DAYS Medications Current Medications Sodium Chloride 1,000 ml @ 1,000 mls/hr 1X ONCE IV Last administered on 09/30/20at 19:56; Start 09/30/20 at 20:00; Stop 09/30/20 at 20:59; Status DC Sodium Chloride 1,000 ml @ 1,000 mls/hr 1X ONCE IV Last administered on 09/30/20at 19:56; Start 09/30/20 at 20:00; Stop 09/30/20 at 20:59; Status DC Acetaminophen (Tylenol) 1,000 mg 1X ONCE PO Last administered on 09/30/20at 21:31; Start 09/30/20 at 21:30; Stop 09/30/20 at 21:31; Status DC Cefepime HCl (Maxipime) 1 gm 1X ONCE IVP Last administered on 09/30/20 21:31; Start 09/30/20 at 21:30; Stop 09/30/20 at 21:31; Status DC Vancomycin HCl 2 gm/Sodium Chloride 500 ml @ 250 mls/hr 1X ONCE IV Last administered on 09/30/20at 21:31; Start 09/30/20 at 21:30; Stop 09/30/20 at 23:29; Status DC Vancomycin HCl (Vanco Per Pharmacy) 1 each PRN DAILY PRN MC SEE COMMENTS Last administered on 10/01/20at 03:08; Start 09/30/20 at 21:15; Stop 10/01/20 at 09:04; Status DC Ondansetron HCl (Zofran) 4 mg PRN Q8HRS PRN IV NAUSEA/VOMITING 1ST CHOICE; Start 09/30/20 at 21:45; Stop 10/01/20 at 21:44; Status DC Fentanyl Citrate (Fentanyl 2ml Vial) 50 mcg PRN Q1HR PRN IV SEVERE PAIN 7-10 Last administered on 10/01/20at 19:22; Start 09/30/20 at 21:45; Stop 10/01/20 at 21:44; Status DC Sodium Chloride 1,000 ml @ 100 mls/hr Q10H IV Last administered on 10/01/20at 18:00; Start 09/30/20 at 22:00; Stop 10/01/20 at 21:59; Status DC Potassium Chloride (Klor-Con) 40 meq 1X ONCE PO Last administered on 10/01/20at 02:57; Start 10/01/20 at 03:00; Stop 10/01/20 at 03:02; Status DC Potassium Chloride (Klor-Con) 40 meq 1X ONCE PO Last administered on 10/01/20at 08:09; Start 10/01/20 at 08:00; Stop 10/01/20 at 08:01; Status DC Potassium Chloride/Water 100 ml @ 100 mls/hr Q1H IV Last administered on 10/01/20at 10:29; Start 10/01/20 at 03:00; Stop 10/01/20 at 06:59; Status DC Vancomycin HCl 1.5 gm/Sodium Chloride 500 ml @ 250 mls/hr Q8HRS IV Last administered on 10/01/20at 06:11; Start 10/01/20 at 06:00; Stop 10/01/20 at 09:00; Status DC Vancomycin HCl (Vancomycin Trough Level) 1 each 1X ONCE MC ; Start 10/01/20 at 21:30; Stop 10/01/20 at 21:31; Status Cancel Cefepime HCl (Maxipime) 2 gm Q8HRS IVP Last administered on 10/03/20at 06:16; Start 10/01/20 at 14:00; Stop 10/03/20 at 11:02; Status DC Doxycycline Hyclate (Vibra-Tab) 100 mg BID PO Last administered on 10/04/20at 09:11; Start 10/01/20 at 09:00 Daptomycin 530 mg/ Sodium Chloride 50 ml @ 100 mls/hr Q24H IV Last ad ministered on 10/03/20at 10:54; Start 10/01/20 at 10:00; Stop 10/03/20 at 11:02; Status DC Chlordiazepoxide (Librium) 50 mg PRN Q1HR PRN PO For CIWA 8-14 Last administered on 10/01/20at 13:00; Start 10/01/20 at 11:45 Chlordiazepoxide (Librium) 100 mg PRN Q1HR PRN PO For CIWA 15 or greater; Start 10/01/20 at 11:45 Lorazepam (Ativan Inj) 2 mg PRN Q1HR PRN IV For CIWA 8-14; Start 10/01/20 at 11:45 Lorazepam (Ativan Inj) 4 mg PRN Q1HR PRN IV For CIWA 15 or greater; Start 10/01/20 at 11:45 Haloperidol Lactate (Haldol Inj) 5 mg PRN Q4HRS PRN IVP Hallucinatns,Confusn,Delirium; Start 10/01/20 at 11:45 Diphenhydramine HCl (Benadryl) 25 mg PRN Q15MIN PRN IVP EPS symptoms 2'Haldol admin; Start 10/01/20 at 11:45 Clonidine HCl (Catapres) 0.1 mg PRN Q1HR PRN PO SBP > 180 or DBP > 100, MRX3; Start 10/01/20 at 11:45 Acetaminophen (Tylenol) 650 mg PRN Q6HRS PRN PO MILD PAIN / TEMP > 100.3'F Last administered on 10/01/20at 23:25; Start 10/01/20 at 11:45 Allopurinol (Zyloprim) 300 mg DAILY PO Last administered on 10/04/20at 09:11; Start 10/01/20 at 13:00 Aspirin (Ecotrin) 81 mg DAILY PO Last administered on 10/04/20at 09:11; Start 10/01/20 at 13:00 Atenolol (Tenormin) 50 mg DAILY PO Last administered on 10/04/20at 09:11; Start 10/01/20 at 13:00 Chlordiazepoxide (Librium) 50 mg BID PO Last administered on 10/04/20at 09:10; Start 10/01/20 at 21:00 Chlordiazepoxide (Librium) 50 mg HS PO ; Start 10/01/20 at 21:00; Status UNV Acetaminophen/ Hydrocodone Bitart (Lortab 10/325) 1 tab PRN Q6HRS PRN PO MODERATE PAIN 4-6 Last administered on 10/01/20at 23:28; Start 10/01/20 at 12:15 Multivitamins (Thera M Plus) 1 tab DAILY PO Last administered on 10/04/20at 0 9:11; Start 10/01/20 at 13:00 Thiamine Mononitrate (Vitamin B-1) 100 mg DAILY PO Last administered on 10/04/20at 09:11; Start 10/01/20 at 13:00 Triamterene/HCTZ (Maxzide 37.5/ 25mg) 1 tab DAILY PO Last administered on 10/04/20at 09:10; Start 10/01/20 at 13:00 Non-Formulary Medication (Imatinib Mesylate (Gleevec)) 400 mg HS PO Last administered on 10/03/20at 20:26; Start 10/01/20 at 21:00 Acetaminophen/ Hydrocodone Bitart (Lortab 10/325) 2 tab PRN Q6HRS PRN PO SEVERE PAIN 7-10 Last administered on 10/02/20at 06:21; Start 10/01/20 at 12:15; Stop 10/02/20 at 11:03; Status DC Lactobacillus Rhamnosus (Culturelle) 1 cap BID PO Last administered on 10/02/20at 09:04; Start 10/01/20 at 21:00; Stop 10/02/20 at 14:19; Status DC Sodium Chloride 1,000 ml @ 100 mls/hr Q10H IV Last administered on 10/04/20at 09:10; Start 10/02/20 at 05:30 Metronidazole (Flagyl) 500 mg Q12HR PO Last administered on 10/03/20at 07:48; Start 10/02/20 at 11:30; Stop 10/03/20 at 11:02; Status DC Acetaminophen/ Hydrocodone Bitart (Lortab 10/325) 2 tab PRN Q4HRS PRN PO SEVERE PAIN 7-10 Last administered on 10/04/20at 05:54; Start 10/02/20 at 11:00 Potassium Chloride/Water 100 ml @ 50 mls/hr Q2H IV Last administered on 10/02/20at 15:22; Start 10/02/20 at 15:30; Stop 10/02/20 at 16:38; Status DC Potassium Chloride (Klor-Con) 40 meq 1X ONCE PO Last administered on 10/02/20at 17:37; Start 10/02/20 at 17:00; Stop 10/02/20 at 17:01; Status DC Amoxicillin/ Clavulanate Potassium (Augmentin 875/ 125mg) 1 tab BID PO Last administered on 10/04/20at 09:11; Start 10/03/20 at 21:00 Potassium Chloride (Klor-Con) 40 meq 1X ONCE PO Last administered on 10/03/20at 13:20; Start 10/03/20 at 13:15; Stop 10/03/20 at 13:16; Status DC Active Scripts Active Thera-M Tablet (Multivits,Ca,Minerals/Iron/Fa) 1 Each Tablet 1 Tab PO DAILY 30 Days Vitamin B-1 (Thiamine Mononitrate) 100 Mg Tablet 100 Mg PO DAILY 30 Days Reported Chlordiazepoxide Hcl 25 Mg Capsule 50 Mg PO DAILY Aspirin Ec (Aspirin) 81 Mg Tablet.dr 1 Tab PO DAILY Triamterene-Hctz 37.5-25 Mg Tb (Triamterene/Hydrochlorothiazid) 1 Each Tablet 1 Tab PO DAILY Atenolol 50 Mg Tablet 50 Mg PO DAILY Gleevec (Imatinib Mesylate) 400 Mg Tablet 400 Mg PO HS Allopurinol 300 Mg Tablet 1 Tab PO DAILY Hydrocodone-Apap 10-325 (Hydrocodone Bit/Acetaminophen) 1 Each Tablet 1-2 Tab PO PRN Q6HRS PRN Chlordiazepoxide Hcl 25 Mg Capsule 50 Mg PO HS Vitals/I & O Vital Sign - Last 24 Hours 10/03/20 10/03/20 10/03/20 10/03/20 11:00 13:15 13:45 15:00 Temp 98.2 98.0 98.2 98.0 Pulse 76 78 Resp 18 20 19 18 B/P (MAP) 111/66 (81) 115/60 (78) Pulse Ox 100 100 100 100 O2 Delivery Room Air Room Air Room Air Room Air 10/03/20 10/03/20 10/03/20 10/03/20 18:28 19:00 19:00 20:00 Temp 97.8 97.8 Pulse 82 Resp 20 18 18 B/P (MAP) 134/96 (109) Pulse Ox 100 99 100 O2 Delivery Room Air Room Air Room Air Room Air 10/03/20 10/03/20 10/03/20 10/04/20 22:36 22:53 23:23 03:00 Temp 97.9 97.9 97.9 97.9 Pulse 91 89 Resp 18 18 18 18 B/P (MAP) 131/93 (106) 139/90 (106) Pulse Ox 98 98 98 98 O2 Delivery Room Air Room Air Room Air Room Air 10/04/20 10/04/20 10/04/20 10/04/20 05:54 06:24 07:00 09:11 Temp 97.5 97.5 Pulse 92 92 Resp 20 16 16 B/P (MAP) 142/94 (110) 142/94 Pulse Ox 98 98 98 O2 Delivery Room Air Room Air Room Air Intake and Output 10/03/20 10/03/20 10/04/20 14:53 22:53 06:53 Intake Total 200 ml 1300 ml 360 ml Output Total 300 ml 100 ml Balance 200 ml 1000 ml 260 ml Justicifation of Admission Dx: Justifications for Admission: Justification of Admission Dx: Yes Sepsis: Bacteremia ZIGGY NUÑEZ MD Oct 04, 2020 09:38
[2020-10-04 11:00] VITALS: BP 137/87
--- NOTE | 2020-10-04 13:51 | NUR ---
SS following up with discharge planning. SS reviewed pt chart and discussed with pt RN. Pt is currently on room air. Benjy from PAT team reported that pt was referred to his insurance legal assistant with [facility] for outpatient treatment and was provided with resources for RSI and AA. Discharge plan is to home when medically ready for discharge. SS will continue to follow for discharge planning.
--- NOTE | 2020-10-04 14:07 | PDOC3 ---
Discharge Summary Date of Admission: Sep 30, 2020 Date of Discharge: Oct 04, 2020 Follow-Up: 3-5 days Admitting Diagnosis comment: HPI HISTORY OF PRESENT ILLNESS: pleasant 44-year-old male who drinks a lot of beer and he presented with tremors. It seems like he may have alcohol withdrawal, but he also meets sepsis criteria. I suspect this is a combination of alcohol withdrawal and sepsis. He spiked a fever of 103. He had a COVID test yesterday, which was negative, but PCR is still pending. He was out in the heat where it was over 100 degrees. He was not eating or drinking much. He apparently had a heart cath 5 days ago. I do not think any stents were placed. I discussed the case with the ER physician. We are going to admit the patient and consult Cardiology, Infectious Disease and Hematology/Oncology as the patient has a history of CML. PROCEDURES CT ABDOMENT/ PELVIS PROGNOSIS EXCELLENT CONSULTS ID,GI , ONCOLOGY COMPLICATIONS NONE D/C CONDITION GOOD D/C MEDS SEE MAR DISCHARGE DX CT of the abdomen shows acute sigmoid diverticulitis., IMPROVED history of CML. Diverticulitis, acute sepsis alcohol withdrawal leukopenia, history of CML. 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 thrombocytopenia, elevated troponin, hypokalemia. PLAN admitted. consult Hematology/Oncology, Cardiology, and Infectious Disease. IV antibiotics, IV fluids, home meds. DVT prophylaxis. Full code. Trend labs. Replace potassium. Long-term prognosis is guarded. History of Present Illness History of Present Illness CHIEF COMPLAINT: Tremors. HISTORY OF PRESENT ILLNESS: The patient is a pleasant 44-year-old male who drinks a lot of beer and he presented with tremors. It seems like he may have alcohol withdrawal, but he also meets sepsis criteria. I suspect this is a combination of alcohol withdrawal and sepsis. He spiked a fever of 103. He had a COVID test yesterday, which was negative, but PCR is still pending. He was out in the heat where it was over 100 degrees. He was not eating or drinking much. He apparently had a heart cath 5 days ago. I do not think any stents were placed. I discussed the case with the ER physician. We are going to admit the patient and consult Cardiology, Infectious Disease and Hematology/Oncology as the patient has a history of CML. PAST MEDICAL HISTORY: CML, recent cardiac cath with no stents, alcoholism, history of alcohol withdrawal. ALLERGIES: CELEBREX. FAMILY HISTORY: Hypertension. SOCIAL HISTORY: He drinks. I think he quit smoking and he is trying to quit drinking. MEDICATIONS: Reviewed. Please refer to the MRAD. REVIEW OF SYSTEMS: GENERAL: No history of weight change, weakness. SKIN: No bruising, hair changes or rashes. EYES: No blurred, double or loss of vision. NOSE AND THROAT: No history of nosebleeds, hoarseness or sore throat. HEART: No history of palpitations, chest pain or shortness of breath on exertion. LUNGS: Denies cough, hemoptysis, wheezing or shortness of breath. GASTROINTESTINAL: Denies changes in appetite, nausea, vomiting, diarrhea or constipation. GENITOURINARY: No history of frequency, urgency, hesitancy or nocturia. NEUROLOGIC: Denies history of numbness, tingling or weakness. PSYCHIATRIC: No history of panic, anxiety or depression. ENDOCRINE: No history of heat or cold intolerance, polyuria or polydipsia. EXTREMITIES: Denies muscle weakness, joint pain, pain on walking or stiffness. 6-21 Diverticulitis, sepsis alcohol withdrawal leukopenia, thrombocytopenia, elevated troponin, hypokalemia. The patient will be admitted. We will consult Hematology/Oncology, Cardiology, and Infectious Disease. IV antibiotics, IV fluids, home meds. DVT prophylaxis. Full code. Trend labs. Replace potassium. Long-term prognosis is guarded. Cont daptomycin.,doxycycline.,cefepime. Start Flagyl Ehrlichia PCR order canceled by administration CT abdomen and pelvis without contrast. noted 6-22 Diverticulitis, sepsis alcohol withdrawal leukopenia, thrombocytopenia, elevated troponin, hypokalemia. The patient will be admitted. We will consult Hematology/Oncology, Cardiology, and Infectious Disease. IV antibiotics, IV fluids, home meds. DVT prophylaxis. Full code. Trend labs. Replace potassium. Long-term prognosis is guarded. Cont daptomycin.,doxycycline.,cefepime. Start Flagyl Ehrlichia PCR order canceled by administration CT abdomen and pelvis without contrast. noted 38 MIN PT EXAM, CHART REVIEW, > 50% OF time spent with exam, chart review, pt care coordination 10-04 Diverticulitis, sepsis alcohol withdrawal symptoms resolved leukopenia, thrombocytopenia, elevated troponin, hypokalemia. The patient will be admitted. We will consult Hematology/Oncology, Cardiology, and Infectious Disease. IV antibiotics, IV fluids, home meds. DVT prophylaxis. Full code. Trend labs. Replace potassium. Long-term prognosis is guarded. Cont daptomycin.,doxycycline.,cefepime. Start Flagyl Ehrlichia PCR order canceled by administration CT abdomen and pelvis without contrast. noted 33 MIN PT EXAM, CHART REVIEW d/c planning, > 50% OF time spent with exam, chart review, pt care coordination discharged home on Augmentin and doxycycline for 7 days Ehrlichia serologies not available ; order cancelled by administration C diff neg,enteric panel neg CT abdomen and pelvis without contrast. noted BC remain neg so far Vitals Vitals Vital Signs Date Time Temp Pulse Resp B/P (MAP) Pulse Ox O2 Delivery O2 Flow Rate FiO2 10/04/20 09:11 92 142/94 10/04/20 07:00 97.5 16 98 Room Air 97.5 Physical Exam Physical Exam sitting bedside chair nad General: Alert, Oriented X3, Cooperative, No acute distress, Other (tremors) Heart: Regular rate, Normal S1, Normal S2 Lungs: Clear Abdomen: Normal bowel sounds, Soft, No tenderness Extremities: No edema FINAL DIAGNOSIS Problems Medical Problems: (1) Fever, unknown origin Status: Acute (2) Leukopenia Status: Acute Brief Hospital Course Mr. Cadena is a 44 old [sex] who presented with [ ] CONDITION AT DISCHARGE: Improved Discharge Medications Current Medications Sodium Chloride 1,000 ml @ 1,000 mls/hr 1X ONCE IV Last administered on 09/30/20at 19:56; Start 09/30/20 at 20:00; Stop 09/30/20 at 20:59; Status DC Sodium Chloride 1,000 ml @ 1,000 mls/hr 1X ONCE IV Last administered on 09/30/20at 19:56; Start 09/30/20 at 20:00; Stop 09/30/20 at 20:59; Status DC Acetaminophen (Tylenol) 1,000 mg 1X ONCE PO Last administered on 09/30/20at 21:31; Start 09/30/20 at 21:30; Stop 09/30/20 at 21:31; Status DC Cefepime HCl (Maxipime) 1 gm 1X ONCE IVP Last administered on 09/30/20at 21:31; Start 09/30/20 at 21:30; Stop 09/30/20 at 21:31; Status DC Vancomycin HCl 2 gm/Sodium Chloride 500 ml @ 250 mls/hr 1X ONCE IV Last administered on 09/30/20at 21:31; Start 09/30/20 at 21:30; Stop 09/30/20 at 23:29; Status DC Vancomycin HCl (Vanco Per Pharmacy) 1 each PRN DAILY PRN MC SEE COMMENTS Last administered on 10/01/20at 03:08; Start 09/30/20 at 21:15; Stop 10/01/20 at 09:04; Status DC Ondansetron HCl (Zofran) 4 mg PRN Q8HRS PRN IV NAUSEA/VOMITING 1ST CHOICE; Start 09/30/20 at 21:45; Stop 10/01/20 at 21:44; Status DC Fentanyl Citrate (Fentanyl 2ml Vial) 50 mcg PRN Q1HR PRN IV SEVERE PAIN 7-10 Last administered on 10/01/20at 19:22; Start 09/30/20 at 21:45; Stop 10/01/20 at 21:44; Status DC Sodium Chloride 1,000 ml @ 100 mls/hr Q10H IV Last administered on 10/01/20at 18:00; Start 09/30/20 at 22:00; Stop 10/01/20 at 21:59; Status DC Potassium Chloride (Klor-Con) 40 meq 1X ONCE PO Last administered on 10/01/20at 02:57; Start 10/01/20 at 03:00; Stop 10/01/20 at 03:02; Status DC Potassium Chloride (Klor-Con) 40 meq 1X ONCE PO Last administered on 10/01/20at 08:09; Start 10/01/20 at 08:00; Stop 10/01/20 at 08:01; Status DC Potassium Chloride/Water 100 ml @ 100 mls/hr Q1H IV Last administered on 10/01/20at 10:29; Start 10/01/20 at 03:00; Stop 10/01/20 at 06:59; Status DC Vancomycin HCl 1.5 gm/Sodium Chloride 500 ml @ 250 mls/hr Q8HRS IV Last administered on 10/01/20at 06:11; Start 10/01/20 at 06:00; Stop 10/01/20 at 09:00; Status DC Vancomycin HCl (Vancomycin Trough Level) 1 each 1X ONCE MC ; Start 10/01/20 at 21:30; Stop 10/01/20 at 21:31; Status Cancel Cefepime HCl (Maxipime) 2 gm Q8HRS IVP Last administered on 10/03/20at 06:16; Start 10/01/20 at 14:00; Stop 10/03/20 at 11:02; Status DC Doxycycline Hyclate (Vibra-Tab) 100 mg BID PO Last administered on 10/04/20at 09:11; Start 10/01/20 at 09:00 Daptomycin 530 mg/ Sodium Chloride 50 ml @ 100 mls/hr Q24H IV Last administered on 10/03/20at 10:54; Start 10/01/20 at 10:00; Stop 10/03/20 at 11:02; Status DC Chlordiazepoxide (Librium) 50 mg PRN Q1HR PRN PO For CIWA 8-14 Last administered on 10/01/20at 13:00; Start 10/01/20 at 11:45 Chlordiazepoxide (Librium) 100 mg PRN Q1HR PRN PO For CIWA 15 or greater; Start 10/01/20 at 11:45 Lorazepam (Ativan Inj) 2 mg PRN Q1HR PRN IV For CIWA 8-14; Start 10/01/20 at 11:45 Lorazepam (Ativan Inj) 4 mg PRN Q1HR PRN IV For CIWA 15 or greater; Start 10/01/20 at 11:45 Haloperidol Lactate (Haldol Inj) 5 mg PRN Q4HRS PRN IVP Hallucinatns,Confusn,D elirium; Start 10/01/20 at 11:45 Diphenhydramine HCl (Benadryl) 25 mg PRN Q15MIN PRN IVP EPS symptoms 2'Haldol admin; Start 10/01/20 at 11:45 Clonidine HCl (Catapres) 0.1 mg PRN Q1HR PRN PO SBP > 180 or DBP > 100, MRX3; Start 10/01/20 at 11:45 Acetaminophen (Tylenol) 650 mg PRN Q6HRS PRN PO MILD PAIN / TEMP > 100.3'F Last administered on 10/01/20at 23:25; Start 10/01/20 at 11:45 Allopurinol (Zyloprim) 300 mg DAILY PO Last administered on 10/04/20at 09:11; Start 10/01/20 at 13:00 Aspirin (Ecotrin) 81 mg DAILY PO Last administered on 10/04/20 09:11; Start 10/01/20 at 13:00 Atenolol (Tenormin) 50 mg DAILY PO Last administered on 10/04/20 09:11; Start 10/01/20 at 13:00 Chlordiazepoxide (Librium) 50 mg BID PO Last administered on 10/04/20 09:10; Start 10/01/20 at 21:00 Chlordiazepoxide (Librium) 50 mg HS PO ; Start 10/01/20 at 21:00; Status UNV Acetaminophen/ Hydrocodone Bitart (Lortab 10/325) 1 tab PRN Q6HRS PRN PO MODERATE PAIN 4-6 Last administered on 10/01/20at 23:28; Start 10/01/20 at 12:15 Multivitamins (Thera M Plus) 1 tab DAILY PO Last administered on 10/04/20 09:11; Start 10/01/20 at 13:00 Thiamine Mononitrate (Vitamin B-1) 100 mg DAILY PO Last administered on 10/04/20 09:11; Start 10/01/20 at 13:00 Triamterene/HCTZ (Maxzide 37.5/ 25mg) 1 tab DAILY PO Last administered on 10/04/20 09:10; Start 10/01/20 at 13:00 Non-Formulary Medication (Imatinib Mesylate (Gleevec)) 400 mg HS PO Last administered on 10/03/20 20:26; Start 10/01/20 at 21:00 Acetaminophen/ Hydrocodone Bitart (Lortab 10/325) 2 tab PRN Q6HRS PRN PO SEVERE PAIN 7-10 Last administered on 6/21/21at 06:21; Start 10/01/20 at 12:15; Stop 10/02/20 at 11:03; Status DC Lactobacillus Rhamnosus (Culturelle) 1 cap BID PO Last administered on 10/02/20at 09:04; Start 10/01/20 at 21:00; Stop 10/02/20 at 14:19; Status DC Sodium Chloride 1,000 ml @ 100 mls/hr Q10H IV Last administered on 10/04/20at 09:10; Start 10/02/20 at 05:30 Metronidazole (Flagyl) 500 mg Q12HR PO Last administered on 10/03/20at 07:48; Start 10/02/20 at 11:30; Stop 10/03/20 at 11:02; Status DC Acetaminophen/ Hydrocodone Bitart (Lortab 10/325) 2 tab PRN Q4HRS PRN PO SEVERE PAIN 7-10 Last administered on 10/04/20at 05:54; Start 10/02/20 at 11:00 Potassium Chloride/Water 100 ml @ 50 mls/hr Q2H IV Last administered on 10/02/20at 15:22; Start 10/02/20 at 15:30; Stop 10/02/20 at 16:38; Status DC Potassium Chloride (Klor-Con) 40 meq 1X ONCE PO Last administered on 10/02/20at 17:37; Start 10/02/20 at 17:00; Stop 10/02/20 at 17:01; Status DC Amoxicillin/ Clavulanate Potassium (Augmentin 875/ 125mg) 1 tab BID PO Last administered on 10/04/20at 09:11; Start 10/03/20 at 21:00 Potassium Chloride (Klor-Con) 40 meq 1X ONCE PO Last administered on 10/03/20at 13:20; Start 10/03/20 at 13:15; Stop 10/03/20 at 13:16; Status DC Active Scripts Active Thera-M Tablet (Multivits,Ca,Minerals/Iron/Fa) 1 Each Tablet 1 Tab PO DAILY 30 Days Vitamin B-1 (Thiamine Mononitrate) 100 Mg Tablet 100 Mg PO DAILY 30 Days Reported Chlordiazepoxide Hcl 25 Mg Capsule 50 Mg PO DAILY Aspirin Ec (Aspirin) 81 Mg Tablet.dr 1 Tab PO DAILY Triamterene-Hctz 37.5-25 Mg Tb (Triamterene/Hydrochlorothiazid) 1 Each Tablet 1 Tab PO DAILY Atenolol 50 Mg Tablet 50 Mg PO DAILY Gleevec (Imatinib Mesylate) 400 Mg Tablet 400 Mg PO HS Allopurinol 300 Mg Tablet 1 Tab PO DAILY Hydrocodone-Apap 10-325 (Hydrocodone Bit/Acetaminophen) 1 Each Tablet 1-2 Tab PO PRN Q6HRS PRN Chlordiazepoxide Hcl 25 Mg Capsule 50 Mg PO HS Vital Signs Vital Signs Date Time Temp Pulse Resp B/P (MAP) Pulse Ox O2 Delivery O2 Flow Rate FiO2 10/04/20 11:00 98.0 88 16 137/87 (104) 100 Room Air 98.0 Labs Laboratory Tests Test 10/03/20 04:00 White Blood Count 5.8 x10^3/uL (4.0-11.0) Red Blood Count 3.96 x10^6/uL (4.30-5.70) Hemoglobin 13.5 g/dL (13.0-17.5) Hematocrit 38.3 % (39.0-53.0) Mean Corpuscular Volume 97 fL (79-100) Mean Corpuscular Hemoglobin 34 pg (25-35) Mean Corpuscular Hemoglobin Concent 35 g/dL (31-37) Red Cell Distribution Width 14.4 % (11.5-14.5) Platelet Count 107 x10^3/uL (140-400) Neutrophils (%) (Auto) 61 % (31-73) Lymphocytes (%) (Auto) 15 % (24-48) Monocytes (%) (Auto) 18 % (0-9) Eosinophils (%) (Auto) 6 % (0-3) Basophils (%) (Auto) 1 % (0-3) Neutrophils # (Auto) 3.5 x10^3/uL (1.8-7.7) Lymphocytes # (Auto) 0.9 x10^3/uL (1.0-4.8) Monocytes # (Auto) 1.0 x10^3/uL (0.0-1.1) Eosinophils # (Auto) 0.3 x10^3/uL (0.0-0.7) Basophils # (Auto) 0.1 x10^3/uL (0.0-0.2) Sodium Level 138 mmol/L (136-145) Potassium Level 3.2 mmol/L (3.5-5.1) Chloride Level 103 mmol/L (98-107) Carbon Dioxide Level 27 mmol/L (21-32) Anion Gap 8 (6-14) Blood Urea Nitrogen 14 mg/dL (8-26) Creatinine 0.7 mg/dL (0.7-1.3) Estimated GFR (Cockcroft-Gault) 122.0 Glucose Level 122 mg/dL (70-99) Calcium Level 8.4 mg/dL (8.5-10.1) Magnesium Level 2.0 mg/dL (1.8-2.4) Triglycerides Level 146 mg/dL (0-150) Cholesterol Level 103 mg/dL (0-200) LDL Cholesterol, Calculated 64 mg/dL (0-100) VLDL Cholesterol, Calculated 29 mg/dL (0-40) Non-HDL Cholesterol Calculated 93 mg/dL (0-129) HDL Cholesterol 10 mg/dL (40-60) Cholesterol/HDL Ratio 10.3 Allergies Allergies Coded Allergies Type Severity Reaction Last Updated Verified celecoxib Adverse Reaction Severe 08/20/20 No Disposition/Orders: D/C to Home Justicifation of Admission Dx: Justifications for Admission: Justification of Admission Dx: Yes Sepsis: Bacteremia ZIGGY UNÑEZ MD Oct 04, 2020 14:06
[2020-10-04] MEDS ORDERED: ACET325T21 PO (14:09)
[2020-10-04] MEDS ORDERED: DOXY100T PO (14:09)
[2020-10-04] MEDS ORDERED: AMOX1TAB11 PO (14:09)
--- NOTE | 2020-10-04 14:10 | DISCH ---
DISCHARGE INSTRUCTIONS Condition on Discharge Condition on Discharge: Stable Activity After Discharge Activity Instructions for Disc: Activity as tolerated Bathing Instructions: Shower-keep dressing dry Lifting Instructions after Dis: No heavy lifting, No pulling or pushing, Do not lift >10 pounds Driving Instructions after Dis: Do not drive today Weight Bearing Status after Di: No restrictions Diet after Discharge Diet after Discharge: Cardiac Diet Texture: Regular Liquid Texture: Thin Liquid Wound Incision Care Wound/Incision Care: Keep wound/cast CDI Checks after Discharge Checks after discharge: Check blood press - daily, Check your Temp as needed Contacting the DRDavid after DC Call your doctor for: If your condition worsens Follow-Up Follow up with: [facility] IN 2 WEEKS,, PCP 2 WEEKS Treatment/Equipment after DC Adaptive Equipment Issued: None ZIGGY NUÑEZ MD Oct 04, 2020 14:10
--- NOTE | 2020-10-04 15:45 | NUR ---
Discharge Note: KACEY HECTOR Discharge instructions and discharge home medications reviewed with Patient and a copy given. All questions have been answered and understanding verbalized. The following instructions and handouts were given: Follow up information given. Discontinued IV line and telemetry. Patient discharged to Home with Self-Care.
== END 2020-10-04 15:54 | disposition home or self-care (01) | DRG 872 ==
LOC: ER 19:30 → 6 SOUTH 22:17
PROVIDERS: ADMIT Internal Medicine; ATTEND Internal Medicine
DX: A41.9 Sepsis, unspecified organism (principal); K57.32 Diverticulitis of large intestine without perforation or abscess without bleeding; F10.239 Alcohol dependence with withdrawal, unspecified; C92.10 Chronic myeloid leukemia, BCR/ABL-positive, not having achieved remission; Z20.822 Contact with and (suspected) exposure to COVID-19; Z82.49 Family history of ischemic heart disease and other diseases of the circulatory system; Z87.891 Personal history of nicotine dependence; I10 Essential (primary) hypertension; I25.10 Atherosclerotic heart disease of native coronary artery without angina pectoris; K76.0 Fatty (change of) liver, not elsewhere classified; K82.8 Other specified diseases of gallbladder; Z95.5 Presence of coronary angioplasty implant and graft; Z96.649 Presence of unspecified artificial hip joint; M10.9 Gout, unspecified; D69.6 Thrombocytopenia, unspecified; E87.6 Hypokalemia; R77.8 Other specified abnormalities of plasma proteins; Z88.8 Allergy status to other drugs, medicaments and biological substances
CPT/HCPCS: 36415; 71045; 74176; 80048; 80053; 80061; 81001; 83605; 83735; 83880; 84484; 85007; 85025; 87040; 87426; 87493; 87505; 93005; 96361; 96365; 96375; J0692; J0878; J3010; J3370; J3480; J7030; J7040; U0003; 99285-25; G0378